=== PATIENT | male | born 1960 | race Caucasian/White ===

== ENCOUNTER → 2024-01-16 07:38 | Outpatient (REF) | payer BC, SELFPAY ==
[2024-01-16 09:55] LABS: TSH 1.66 uIU/ml (0.47-4.68)
[2024-01-16 10:02] LABS: ALT (SGPT) 30 U/L (0-50); AST (SGOT) 35 U/L (17-59); Albumin 3.5 g/dl (3.5-5.0); Alkaline Phosphatase 60 U/L (38-126); Blood Urea Nitrogen 15 mg/dl (9-20); Calcium 8.8 mg/dl (8.4-10.2); Carbon Dioxide 30 mmol/L (22-30); Chloride 104 mmol/L (98-107); Glucose 55 mg/dl (70-99); HDL Cholesterol 61 mg/dl; LDL Cholesterol, Calculated 77 mg/dl; Potassium 4.6 mmol/L (3.5-5.1); Sodium 138 mmol/L (135-145); Total Bilirubin 0.6 mg/dl (0.2-1.3); Total Cholesterol 152 mg/dl (50-199); Total Protein 6.2 g/dl (6.3-8.2); Triglyceride 70 mg/dl (10-149); Very Low Density Lipoprotein 14 mg/dl (0-30); eGFR > 60.00
[2024-01-16 12:11] LABS: Glycohemoglobin (HgbA1c) 7.9 % (4.0-5.6)
== END ==
LOC: REG 07:38
PROVIDERS: ATTENDING PHYSICIAN Nurse Practitioner Family; FAMILY PHYSICIAN Internal Medicine
DX: E11.9 Type 2 diabetes mellitus without complications (principal)
CPT/HCPCS: 36415; 80053; 80061; 83036; 84443

== ENCOUNTER → 2024-05-17 06:43 | Outpatient (REF) | payer BC, SELFPAY ==
[2024-05-17 08:07] LABS: ALT (SGPT) 27 U/L (0-50); AST (SGOT) 26 U/L (17-59); Albumin 3.9 g/dl (3.5-5.0); Alkaline Phosphatase 63 U/L (38-126); Blood Urea Nitrogen 24 mg/dl (9-20); Calcium 8.9 mg/dl (8.4-10.2); Carbon Dioxide 26 mmol/L (22-30); Chloride 102 mmol/L (98-107); Glucose 173 mg/dl (70-99); Potassium 4.7 mmol/L (3.5-5.1); Sodium 138 mmol/L (135-145); Total Bilirubin 0.5 mg/dl (0.2-1.3); Total Protein 6.6 g/dl (6.3-8.2); eGFR > 60.00
[2024-05-17 08:22] LABS: Microalbumin, Random Urine < 0.6 mg/dl (0.6-1.7)
[2024-05-17 09:06] LABS: Glycohemoglobin (HgbA1c) 8.8 % (4.0-5.6)
== END ==
LOC: REG 06:43
PROVIDERS: ATTENDING PHYSICIAN Internal Medicine Endocrinology, Diabetes & Metabolism; FAMILY PHYSICIAN Internal Medicine
DX: E11.9 Type 2 diabetes mellitus without complications (principal)
CPT/HCPCS: 36415; 80053; 82043; 82570; 83036

== ENCOUNTER 2025-08-01 06:19 | Day surgery (SDC) | payer BC, SELFPAY ==
[2025-08-01 09:26] LABS: Glucose - Point of Care 185 mg/dl (70-99)
== END 2025-08-01 11:15 | disposition home or self-care (01) ==
LOC: GI 06:19
PROVIDERS: ATTENDING PHYSICIAN Internal Medicine Gastroenterology; FAMILY PHYSICIAN Internal Medicine
DX: Z12.11 Encounter for screening for malignant neoplasm of colon (principal); K64.8 Other hemorrhoids; K57.30 Diverticulosis of large intestine without perforation or abscess without bleeding; D12.3 Benign neoplasm of transverse colon; D12.2 Benign neoplasm of ascending colon; D12.4 Benign neoplasm of descending colon; D12.5 Benign neoplasm of sigmoid colon; Z86.0100 Personal history of colon polyps, unspecified
CPT/HCPCS: 45385; 45380; 82962; 88305

== ENCOUNTER 2025-08-09 06:41 | Inpatient (IN) | payer BC, SELFPAY ==
[2025-08-09] VITALS (24 sets, daily range): BP systolic 100–153; BP diastolic 57–119; BMI 68.0; BMI 31.1
--- NOTE | 2025-08-09 02:48 | ED.GENMED ---
History of Present Illness
General
Chief Complaint: Cold/Flu/URI Symptoms
Time Seen by Provider: 08/09/25 02:22
History of Present Illness
History of Present Illness:
65-year-old male with history of insulin-dependent diabetes presents to the emergency department for evaluation of fever, chills, body aches, left-sided pleuritic chest pain, dyspnea, and coughing for the past 2 to 3 days. Began vomiting this
evening. Taking [id number] cold and flu medicines with minimal relief. No ill contacts at home. Did receive COVID and flu vaccines
Past History
Past History
ED Past Medical History: IDDM and Other (Diabetes, sinus polyp surgery)
Social History
Tobacco: Non-smoker
Alcohol: None
Drug: None
Personal:
Living: with family
Employment: Employed
Family History
Family History: Other (Parkinson's, diabetes, coronary artery disease)
Review of Systems
Review of Systems
Allergies reviewed?: Yes
All Other Systems: ROS reviewed and negative except as documented in HPI and ROS
Phy Exam
Physical Exam
Physical Exam:
GEN: Well appearing, NAD, WDWN
HEENT: Oral mucosa moist, no scleral icterus
Cardiac: Tachycardic, regular, no murmur
Lung: No respiratory distress, no tachypnea, lungs clear to auscultation bilaterally
MSK: No gross deformity or injuries
Skin: Good color, no pallor or jaundice, no rashes
Neuro: AO x3, moves all extremities freely
Psych: Calm, cooperative
Sepsis
Sepsis Screening
Sepsis Assessment: Sepsis Ruled Out
Sepsis Screen
Sepsis Screen: Sepsis Ruled Out
Date: 08/09/25
Time: 05:16
Course
Orders/Labs/Results
Orders:
Orders
08/09/25 02:03
Electrocardiogram (*1) Urgent
Reason for Study: Chest Pain
08/09/25 02:04
EKG- Treatment ONCE
08/09/25 02:08
COVID-19 Antigen Urgent
Source: Nasal Swab
Influenza A+B Rapid Molecular Urgent
KARI Source: Nasal Swab
Specimen Description:
08/09/25 02:47
Ketorolac [Toradol] 15 mg IV NOW STA
08/09/25 02:48
CR Chest - 2 Views Urgent
Comment:
Reason For Exam: L chest pain/SOB
08/09/25 03:26
Complete Blood Count/With Diff Urgent
Comprehensive Metabolic Panel Urgent
Lactic Acid Q4H
Comment: CANCEL 2nd LACTIC ACID IF 1st LACTIC ACID IS LESS THAN 2
Serum Osmolality Urgent
Comment: ADD ON
Troponin I Urgent
08/09/25 04:29
0.9% Sodium Chloride 1000 ml [Nss] 1,000 ml IV BOLUS
08/09/25 04:31
Lactated Ringers [Lr] 1,000 ml IV BOLUS
08/09/25 04:32
Add On- LAB Urgent
Tests Added?: serum osmolality
08/09/25 04:34
Venous Blood Gas Urgent
%Oxygen/Room Air: 93
08/09/25 04:39
Acetone [B-Hydroxybutyrate] Urgent
08/09/25 05:11
Oseltamivir Phosphate [Tamiflu] 75 mg PO NOW STA
Abnormal Lab Results
08/09/25 08/09/25
03:26 04:34
WBC 18.1 H 10^3/uL
(4.8-10.8)
RDW 14.9 H %
(11.5-14.5)
MPV 11.1 H fL
(7.4-10.4)
Abs Immat Gran (auto) 0.2 H 10^3/uL
(0-0.05)
Absolute Neuts (auto) 15.3 H 10^3/uL
(1.4-6.5)
Absolute Lymphs (auto) 0.9 L 10^3/uL
(1.2-3.4)
Absolute Monos (auto) 1.5 H 10^3/uL
(0.1-0.6)
Immature Gran % 0.8 H %
(0-0.5)
Neutrophils % 84.4 H %
(42.2-75.2)
Lymphocytes % 5.2 L %
(20.5-51.1)
VBG pH 7.23 L
(7.32-7.43)
VBG pCO2 25 L mmHg
(35-48)
VBG pO2 135 H mmHg
(30-50)
VBG HCO3 10.5 L mmol/L
(22-27)
Sodium 131 L mmol/L
(135-145)
Carbon Dioxide 9 L* mmol/L
(22-30)
Glucose 184 H mg/dl
(70-99)
08/09/25 03:26
08/09/25 03:26
Vital Signs
Initial and Last Documented VS:
Initial Vital Signs
Temp Pulse Resp BP Pulse Ox
97.9 F 113 24 113/78 95
08/09/25 01:59 08/09/25 01:59 08/09/25 01:59 08/09/25 01:59 08/09/25 01:59
Last Documented Vital Signs
Temp Pulse Resp BP Pulse Ox
97.9 F 109 24 118/72 92
08/09/25 01:59 08/09/25 02:45 08/09/25 01:59 08/09/25 04:00 08/09/25 03:51
MDM/Problems Addressed
MDM/Problems Addressed:
Etiology to patient's metabolic acidosis is most likely ketosis whether this be starvation versus diabetic ketoacidosis. His glucose is only 184 thus initiated buffered crystalloid only for the time being. lactic normal, Osmolar gap <15. Will
start antivirals, no evidence for infiltrate on chest x-ray. Negative troponin is reassuring against myocarditis explaining his chest pain. Will admit to the hospitalist service for further management
Comment
Comment:
EKG independently interpreted by me shows a sinus tachycardia rate of 110 with a mildly increased QT interval, no ischemic ST changes. Chest x-ray independently interpreted by me is negative for acute infiltrate
*Pulse Oximetry
SaO2: 95
Oxygen Mode of Delivery: Room air
Patient hypoxic: yes
*Critical Care Note
Total Time (30-74mins, 75-104mins- exclusive of procedures): 45 minutes
comment:
Critical care time: 45 minutes
Critical care time was exclusive of: Separately billable procedures, treating other patients, and teaching time
Critical care was necessary to treat or prevent imminent or life-threatening deterioration of the following conditions: Metabolic acidosis due to influenza
Critical care time spent personally by me on the following activities:
[x] Review of old charts
[x] Obtaining history from patient or surrogate
[x] Ordering and review of the laboratory studies
[x] Ordering and review of radiographic studies
[x] Ordering and performing treatments and interventions
[x] Patient patient's response to treatment
[x] Development of treatment plan with patient or surrogate
ED Attending Note
-
Portions of this chart may have been created with voice recognition software.� Occasional wrong word or��sound alike� substitutions may have occurred due to the inherent limitations of voice recognition software.
Discharge Plan
Departure
Patient Disposition: Admit
Date of Disposition: 08/09/25
Time of Disposition: 05:13
Admit to: Med/Surg
Presentation/result/management discussed w/ accepting MD/DO: Hospitalist
Discharge Problem:
Influenza A, Metabolic acidosis
Prescriptions:
No Action
atorvastatin 10 mg Tablet
10 mg PO DAILY
metformin 1,000 mg Tablet
1,000 mg PO BID@0800,1700
Rx Instructions:
STOPPED UNTIL DIARRHEA IS OVER
fluticasone propionate [Flonase Allergy Relief] 50 mcg/actuation [place],Suspension
2 spray INTRANASAL DAILY
escitalopram oxalate [Lexapro] 20 mg Tablet
20 mg PO DAILY
Jardiance 25 mg Tablet
25 mg PO DAILY
Trulicity 3 mg/0.5 mL pen injector
3 mg SC WE
levothyroxine 75 mcg tablet
75 mcg PO DAILY@0700
loperamide 2 mg Capsule
2 mg PO Q6HPRN PRN (Reason: diarrhea) Qty: 30 0RF
insulin glargine [Lantus Solostar U-100 Insulin] 100 unit/mL (3 mL) insulin pen
25 unit SC BID 30 Days Qty: 15 1RF
pantoprazole 40 mg Tablet,Delayed Release (Dr/Ec)
40 mg PO DAILY Qty: 30 0RF
diphenoxylate-atropine 2.5-0.025 mg tablet
1 tab PO QID PRN (Reason: diarrhea)
benzonatate 100 mg capsule
100 mg PO TID PRN (Reason: cough)
midodrine 5 mg Tablet
5 mg PO TID@0800,1300,1800 Qty: 90 0RF
insulin aspart U-100 [Novolog FlexPen U-100 Insulin] 100 unit/mL (3 mL) Insulin Pen
8 unit SC AC Qty: 15 0RF
furosemide [Lasix] 40 mg tablet
40 mg PO DAILY Qty: 30 0RF
potassium chloride 20 mEq tablet,ER particles/crystals
20 meq PO DAILY Qty: 30 0RF
Referrals:
Mahsa James MD [Family Provider, Internal Medicine]
Interventions
Interventions:
*General Assessment Last Done: 08/09/25 03:22
*Neglect/Abuse Screening Last Done: 08/09/25 01:59
*ED COVID-19 Vaccine History Last Done: 08/09/25 01:59
*ED Influenza Vaccine History Last Done: 08/09/25 01:59
[facility] Fall Risk Assessment Tool Last Done: 08/09/25 03:22
*Risk Screen - Suicide (C-SSRS) Last Done: 08/09/25 04:04
ED- Pulmonary Assessment Last Done: 08/09/25 03:22
Discharge Date and Time
Print Language: IRAQI
[2025-08-09 02:54] LABS: COVID-19 Antigen Negative (Negative)
[2025-08-09] MEDS: TORADOL 15 MG IV ×3 (03:27→19:22)
[2025-08-09 03:50] LABS: Hematocrit 42.8 % (39.0-52.0); Hemoglobin 14.3 g/dL (13.0-18.0); Mean Corp Hgb Conc. 33.4 g/dL (33.0-37.0); Mean Corpuscular Volume 85.3 fL (80.0-94.0); Nucleated Red Blood Cells % 0 % (-); Platelet Count 194 10^3/uL (130-400); Red Cell Dist. Width 14.9 % (11.5-14.5)
[2025-08-09 04:27] LABS: ALT (SGPT) 19 U/L (0-50); AST (SGOT) 27 U/L (17-59); Albumin 4.1 g/dl (3.5-5.0); Alkaline Phosphatase 91 U/L (38-126); Blood Urea Nitrogen 16 mg/dl (9-20); Calcium 8.7 mg/dl (8.4-10.2); Carbon Dioxide 9 mmol/L (22-30); Chloride 98 mmol/L (98-107); Estimated Creatinine Clearance 89 ml/min; Glucose 184 mg/dl (70-99); Potassium 5.0 mmol/L (3.5-5.1); Sodium 131 mmol/L (135-145); Total Protein 7.2 g/dl (6.3-8.2); eGFR > 60.00
[2025-08-09 04:29] LABS: Troponin I < 0.012 ng/ml
[2025-08-09] MEDS: LR 1000 IV (04:33)
[2025-08-09 04:45] LABS: Venous Blood Gas B.E. -15.2 mmol/L (-4 to +4); Venous Blood Gas O2 Sat % 99.3 %
[2025-08-09] MEDS: TAMIFLU 75 MG PO ×2 (05:25→19:19)
--- NOTE | 2025-08-09 06:16 | HPS.HSE ---
Family Physician
-
Family Physician: Mahsa James
Chief Complaint
-
Flulike illness
History of Present Illness
This is a 65-year-old male with past medical history significant for insulin-dependent diabetes, hypothyroidism, hypertension and hyperlipidemia who presents to the emergency department with complaints of generalized aches and malaise that started
about 2 days ago.
Exam patient reports abrupt onset of fever chills and generalized aches and pains. Initially he had decreased appetite but later on developed nausea and vomiting and unable to tolerate p.o. He reports that he has continued take his usual
medications and his glucoses ran in the 180s. He denies any diarrhea. He does have sick contacts. He denies any shortness of breath.
On arrival in the emergency department he was afebrile, blood pressure was 113/67 with a pulse of 109 and oxygen saturation of 98%. Chest x-ray shows no acute infiltrate. He does have a white count of 18.1, hemoglobin 14.3 and platelet 194.
Sodium was 131 potassium 5.1, bicarb of 9 with a BUN and creatinine of 11 and 1.0 and a glucose of 184. Anion gap was 24. pH is 7.23 with a pCO2 of 25. 1 beta-hydroxybutyrate was elevated at 4.8. Urine studies are pending. Influenza test was
positive. COVID test was negative.
Medical History
Past Medical History
Past Medical History: Reports Other
Additional Past Medical History:
DM-II
Hypertension
Hyperlipidemia
Long COVID
Hypothyroidism
Chronic Sinus Disease
Past Surgical History: Reports Other
Additional Past Surgical History:
Sinus Surgery
Rotator Cuff Surgery
Social History
Tobacco: Non-smoker
Alcohol: None
Drug: None
Family History
Family History: Other (Father: CAD, Parkinson's Disease Mother: Colon Cancer, Longevity)
Allergies / Home Medications
Allergies reflects when Allergies were last updated in [employer].
Home Medications with original date entered in [employer]
Allergy/Medication List:
Allergies
Allergy/AdvReac Type Severity Reaction Status Date / Time
No Known Allergies Allergy Verified 07/06/23 20:50
Home Medications
atorvastatin 10 mg tablet 10 mg PO DAILY High Cholesterol 07/29/22
empagliflozin 25 mg tablet (Jardiance) 25 mg PO DAILY Diabetes 07/29/22
escitalopram oxalate 20 mg tablet (Lexapro) 20 mg PO DAILY Mental Health/Anxiety 07/29/22
fluticasone propionate 50 mcg/actuation nasal spray,suspension (Flonase Allergy Relief) 2 spray intranasal DAILY Allergies 07/29/22
metformin 1,000 mg tablet 1,000 mg PO BID@0800,1700 Diabetes 07/29/22
ramipril 5 mg capsule 5 mg PO DAILY Diabetes 07/29/22
dulaglutide 3 mg/0.5 mL subcutaneous pen injector (Trulicity) 3 mg SC WE Diabetes 06/23/23
levothyroxine 75 mcg tablet 75 mcg PO DAILY@0700 Thyroid 06/23/23
insulin aspart U-100 100 unit/mL (3 mL) subcutaneous pen (Novolog FlexPen U-100 Insulin aspart) 6 unit (0.06 mL) SC AC IDDM #15 mL 06/29/23
insulin glargine 100 unit/mL (3 mL) subcutaneous pen (Lantus Solostar U-100 Insulin) 25 unit (0.25 mL) SC BID IDDM 30 days #15 mL 06/29/23
loperamide 2 mg capsule 2 mg PO Q6HPRN PRN diarrhea #30 caps 06/29/23
pantoprazole 40 mg tablet,delayed release 40 mg PO DAILY Gastrointestinal issue #30 tabs 06/29/23
benzonatate 100 mg capsule 100 mg PO TID PRN cough 07/06/23
diphenoxylate-atropine 2.5 mg-0.025 mg tablet 1 tab PO QID PRN diarrhea 07/06/23
Review of Systems
-
Constitutional: Reports Fever and Chills
EENT: Reports No Symptoms
Respiratory: Reports Cough; Denies Trouble Breathing
Cardiac: Reports No Symptoms
Abdomen/GI: Reports Nausea and Vomiting
: Reports No Symptoms
Musculoskeletal: Reports No Symptoms
Skin: Reports No Symptoms
Neurological: Reports Weakness
Endocrine: Reports No Symptoms
Hematologic/Lymphatic: Reports No Symptoms
Psych: Reports No Symptoms
Physical Exam
Vital Signs
Vital Signs
Temp Pulse Resp BP Pulse Ox
97.9 F 109 24 115/68 94
08/09/25 01:59 08/09/25 02:45 08/09/25 01:59 08/09/25 06:00 08/09/25 06:00
Physical Exam
General: Comfortable and Conversant
HEENT: NormoCephalic and Anicteric
Respiratory: Clear and Non Labored Respirations
Cardiac: S1/S2 and Regular Rhythm
GI: Soft, Non Tender and Non Distended
Musculoskeletal: No Clubbing, No Cyanosis and Other (+2 pitting edema bilateral lower extremities)
Skin: Warm and Dry
Neuro: Awake, Alert, Oriented and Nonfocal/grossly intact
Psych: Calm
Laboratory Results
-
08/09/25 03:26
08/09/25 03:26
Laboratory Results
Lactic Acid Cancelled 08/09/25 07:00
Total Bilirubin 0.5 mg/dl (0.2-1.3) 08/09/25 03:26
AST 27 U/L (17-59) 08/09/25 03:26
ALT 19 U/L (0-50) 08/09/25 03:26
Alkaline Phosphatase 91 U/L (38-126) 08/09/25 03:26
Troponin I < 0.012 ng/ml 08/09/25 03:26
Data Reviewed
-
Diagnostic Radiology: Image Personally Visualized and interpreted
Lab Data: Labs Reviewed by me
Old Records: Reviewed
Impression/Plan
-
IMPRESSION:
65year-old with past medical history significant for insulin-dependent diabetes who presents to the emergency department with flulike symptoms. Diagnosed with influenza. Patient has had approximately 2 days of symptoms. He is now having nausea
and vomiting and is dehydrated. Clinical picture shows acidemia, no lactic acidosis, anion gap of 24 with a glucose of 184. Patient likely has known hypoglycemic DKA in the setting of SGLT2 inhibitor use.
PLAN:
Influenza A infection -cannot rule out superimposed pneumonia at this time but chest x-ray shows no acute infiltrates on my read.
� Admit to ICU
� Patient will need insulin drip
� Start Tamiflu 75 mg twice daily
� Supportive measures with IV fluids pain control antipyretics and antiemetics
� Check procalcitonin, if positive will start ceftriaxone
� Check MRSA swab
DKA�unknown hyper/glycemic DKA given acidemia, bicarb of 9 with anion gap of 24 and elevated beta-hydroxybutyrate. Urinary ketones and urinary glucose will confirm the diagnosis. Unlikely starvation ketoacidosis.
� Status post 1 L bolus of LR
� Continue IV fluids with D5 normal saline plus KCl at 150 mL an hour
� Start insulin drip
� Insulin drip protocol with every 4 hours chemistry and every hour fingersticks
Hypothyroid
� Continue levothyroxine 75 mcg
DVT prophylaxis�Lovenox subcu
CODE STATUS�full code
[2025-08-09] MEDS: D5/0.45%NSS with KCL 20 MEQ 1000 IV ×3 (07:48→17:26)
[2025-08-09] MEDS: NOVOLIN R INSULIN INFUSION 100 IV (07:52)
--- NOTE | 2025-08-09 07:52 | EDRN ---
Blood glucose 180 on pt's glucometer
[2025-08-09] MEDS: TYLENOL 650 MG PO ×2 (07:57→19:18)
--- NOTE | 2025-08-09 08:46 | PTCARENOTE ---
arrived via ED stretcher, ambulated to bathroom, voided 500 clear yellow, settled in bed. See admission assessment. Fluids and insulin gtt infuse as ordered. IV sites patent. notes continuing L rib pleuritic pain, recent tylenol. droplet
isolation
[2025-08-09 09:15] LABS: Glucose - Point of Care 189 mg/dl (70-99)
--- NOTE | 2025-08-09 09:29 | CON.INTV ---
Addendum entered and electronically signed by Rigo Tang MD 08/09/25 14:03:
D-dimer elevated.
Unclear significant at this point
Wait for lower extremity Dopplers
Again, if chest pain continues CT chest will be necessary.
Original Note:
Consultation
Consultation Request
Date/Time Consultation Requested: 08/09/2025
Date/Time Consultation Performed: 08/09/2025
Requesting Provider: Dr. Hernandez
Performing Provider: Dr. Tang
Reason for Consultation: DKA
Medical History
-
Chief Complaint: DKA/influenza A
History of Present Illness:
Mr. Duran is a 65-year-old male with a history of insulin-dependent diabetes, hypothyroid, hypertension, hyperlipidemia, anxiety, GERD, long COVID who presented with generalized aches and malaise for 2-3 days. He reports having fevers and chills as
well as cough and pleuritic chest pain with decreasing appetite increasing nausea and episode of vomiting. He also noticed that his glucose levels were running in the 180s. He takes Jardiance and insulin at home. He took [id number] cold and
flu medicines that did not provide any relief. He reports no known sick contacts. In the ED he was afebrile initial vital signs showed BP 113/67, pulse 109, O2 sat 98. Labs notable for WBC 18.1 Hgb 14.3 sodium 131 potassium 5.1 bicarb 9 CR 1.0
glucose 184 and beta hydroxybutyrate at 4.8 VBG showed pH 7.2 11/08/135/10. Influenza test was positive COVID test negative. In the ED he received 2 L IV fluids, Tamiflu, chest x-ray in the ED showed no cardiopulmonary process, EKG showed sinus
tachycardia. Patient was brought to ICU and started on D5 normal saline, and insulin infusion 2 units/h. This morning he reported L chest wall pain associated with SOB radiating to L shoulder worsened by breathing. He reports that this has been
going on for 3 days. He also had an episode of emesis and nausea, no LE swelling, no abdominal pain. Pain improved with toradol in the ED.
Past Medical History
Past Medical History: GERD, HTN, Hypercholesterolemia, Hypothyroidism, IDDM and Other (Long COVID)
Past Surgical History: Orthopedic (Rotator cuff surgery) and Other (Sinus)
Social History
Tobacco: Non-smoker
Alcohol: None
Drug: None
Personal:
Living: With Family
Employment: Employed
Family History
Family History: Reviewed & Not Pertinent
Allergies / Home Medications
Allergies
Allergy/AdvReac Type Severity Reaction Status Date / Time
No Known Allergies Allergy Verified 08/09/25 01:59
Home Medications
�Medication �Instructions �Recorded �Confirmed �Last Taken �Type
atorvastatin 10 mg tablet 10 mg PO DAILY High Cholesterol 07/29/22 08/09/25 08/08/25 History
empagliflozin 25 mg tablet 25 mg PO DAILY Diabetes 07/29/22 08/09/25 08/08/25 History
(Jardiance)
escitalopram oxalate 20 mg tablet 20 mg PO DAILY Mental 07/29/22 08/09/25 08/08/25 History
(Lexapro) Health/Anxiety
levothyroxine 75 mcg tablet 75 mcg PO DAILY@0700 Thyroid 06/23/23 08/09/25 08/08/25 History
insulin glargine 100 unit/mL (3 20 unit SC BID IDDM 08/09/25 08/09/25 08/08/25 History
mL) subcutaneous pen (Lantus
Solostar U-100 Insulin)
ramipril 5 mg capsule 5 mg PO DAILY 08/09/25 08/09/25 08/08/25 History
tirzepatide 10 mg/0.5 mL 10 mg SC WE 08/09/25 08/09/25 08/07/25 History
subcutaneous pen injector
(Mounshawnro)
Review of Systems
-
History Source: Patient
All other systems: Negative unless noted
Constitutional: Fever and Chills
Respiratory: Trouble Breathing (due to pain)
Cardiac: Chest Pain (with breathing)
Vitals / Labs / Diagnostic Testing
Vital Signs
Temp Pulse Resp BP Pulse Ox
97.7 F 101 20 140/79 94
08/09/25 07:16 08/09/25 08:36 08/09/25 08:36 08/09/25 08:36 08/09/25 08:48
Lab Data
08/09/25 03:26
Microbiology
08/09/25 02:08 Nasal Swab Influenza Types A & B (SWAPNA) - Final
Influenza A Positive, NAAT
Diagnostic Testing:
Physical Exam
-
HEENT: Normocephalic and Anicteric
Cardiovascular: S1/S2 and Regular Rhythm
Respiratory: Clear and Non-Labored Respirations
GI: Soft, Non Distended and Non Tender
Neurology: Awake and Alert
Skin: Warm and Dry
General: Pain
Assessment
-
Mr. Duran is a 65-year-old male with a history of insulin-dependent diabetes, hypothyroid, hypertension, hyperlipidemia, anxiety, GERD, long COVID who presented with generalized aches and malaise for 2-3 days. He reports having fevers and chills as
well as cough and pleuritic chest pain with decreasing appetite increasing nausea and episode of vomiting. Labs suggestive of euglycemic DKA and influenza A.
#Endocrine
Euglycemic DKA
Type 2 diabetes on insulin
home insulin Lantus 25 NovoLog 6
On Jardiance
On Mounjaro
Beta hydroxybutyrate 4.8
Anion gap 24
Bicarb 9
S/p LR in the ED
- npo
- Insulin drip 2 units/h
- D5/0.45 NSS with potassium
- Q4 chemistries until gap closed x2
Hypothyroidism
Continue levothyroxine
#Neurologic
Pain: Chest pain with inspiration
Analgesia: oxycidine prn, tylenol, lido patch, toradol prn
Mentation: At baseline AO x 3
Activity:
#Cardiovascular
Maintain MAP> 65
Pressors: none
QTc: 484
EKG 08/09 sinus tachycardia possible left atrial enlargement
#Respiratory
O2 requirements:
Sedation:
Home O2: None
Blood gas: 08/09 VBG 7.23/25/135/10.5
Pleurisy
L chest wall pain radiating to L shoulder
EKG with sinus tachy
troponin negative, awaiting repeat
CXR with no obvious cardiopulm process
if pain persistent, additional imaging
-D dimer, helpful if negative
-US LE rule out DVT
-Toradol prn
-Lido patch
-oxycodone prn
#Gastrointestinal
Diet: N.p.o.
Stooling regimen:
Tubes: None
Antiemetics: Zofran
GI PPx: Protonix 40 mg daily
#Renal
Doan: None
Urine output:
IVF: D5.45 NSS with KCl at 200
Electrolytes: K>4 Mg>2
Na 131
K 5.0
Mag 2.3
#Infectious
WBC 18
ABX:
Microbiology: Influenza A positive
Antipyretics: acetaminophen
Influenza A
Started 2-3 days ago
S/p dose of Tamiflu in ER
chest x-ray with no acute cardiopulmonary process
-Tamiflu twice daily
- ABX pending Pro-Kade
-Continue supportive care
#Hematologic
DVT PPx: Lovenox
Hemoglobin: 14.3
PT
INR
PTT
#Surgical
#Access
Central:
None
Peripheral:
Right cephalic 20-gauge
Right hand 20-gauge
CODE STATUS: Full code
[2025-08-09] MEDS: ZOFRAN 4 MG IV (09:38)
--- NOTE | 2025-08-09 09:41 | PTCARENOTE ---
vomited, med with zofran IV per order.
[2025-08-09] MEDS: LIPITOR PO (10:06)
[2025-08-09] MEDS: PROTONIX 40 MG PO (10:10)
[2025-08-09] MEDS: SYNTHROID 75 MCG PO (10:10)
[2025-08-09] MEDS: LEXAPRO 20 MG PO (10:10)
[2025-08-09 10:19] LABS: Glucose - Point of Care 254 mg/dl (70-99)
[2025-08-09 11:21] LABS: Glucose - Point of Care 206 mg/dl (70-99)
--- NOTE | 2025-08-09 11:22 | W.PN.HOSP.TC ---
Today's Communication/Plan
-
IV insulin and fluids
Serial BMP.
Assessment / Plan
Assessment / Plan
Impression:
65year-old with past medical history significant for insulin-dependent diabetes who presents to the emergency department with flulike symptoms. Diagnosed with influenza. Patient has had approximately 2 days of symptoms. He is now having nausea
and vomiting and is dehydrated. Clinical picture shows acidemia, no lactic acidosis, anion gap of 24 with a glucose of 184. Patient likely has known hypoglycemic DKA in the setting of SGLT2 inhibitor use.
Influenza bronchitis
Euglycemic DKA in the settings of SGLT2 inhibitor
Atypical chest pain
Other conditions
IDDM type II
Dyslipidemia
Hypertension
Hypothyroidism
Obesity with BMI of 31
Plan
Influenza A. Report symptoms for 2 days prior to presentation.
Stable respiratory status
Chest x-ray with no focal infiltrates.
No clinical evidence for bacterial superinfection
Procalcitonin pending
Initiated on Tamiflu.
Mucolytic's
Euglycemic DKA in the settings of SGLT2 inhibitor.
Preadmission regimen including Lantus 20 units twice daily, Mounjaro and Jardiance
Prior history of the same triggered with URI/COVID.
Update hemoglobin A1c pending
IV insulin
Aggressive IV hydration
Hold Jardiance
Serial BMP
Currently n.p.o.
Reproducible midsternal pain likely related to flu and DKA.
EKG with no evidence of ischemia
Troponin negative. Continue monitoring.
Continue PPI
And oxycodone for better control
DVT prophylaxis: Lovenox
Anticipated Discharge: 24 - 48 hours
Subjective/Interval History
-
Date of Service: August 09, 2025
Objective Data
-
Labs:
Laboratory Results
08/09/25 08/09/25 08/09/25
03:26 12:00 16:00
WBC 18.1 H
Hgb 14.3
Hct 42.8
Plt Count 194
Sodium 131 L Pending Pending
Potassium 5.0 Pending Pending
Chloride 98 Pending Pending
Carbon Dioxide 9 L* Pending Pending
BUN 16 Pending Pending
Creatinine 1.0 Pending Pending
Glucose 184 H Pending Pending
Calcium 8.7 Pending Pending
Total Bilirubin 0.5
AST 27
ALT 19
Alkaline Phosphatase 91
08/09/25
20:00
WBC
Hgb
Hct
Plt Count
Sodium Pending
Potassium Pending
Chloride Pending
Carbon Dioxide Pending
BUN Pending
Creatinine Pending
Glucose Pending
Calcium Pending
Total Bilirubin
AST
ALT
Alkaline Phosphatase
Vital Signs:
Vital Signs
Temp Pulse Resp BP Pulse Ox
97.3 F 101 25 129/77 94
08/09/25 09:00 08/09/25 11:00 08/09/25 11:00 08/09/25 11:00 08/09/25 11:00
I&O
08/08/25 08/09/25 08/10/25
06:59 06:59 06:59
Intake Total 841 / 841
Output Total 500 / 500
Balance 341 / 341
Physical Exam
-
General: Well Developed and No Apparent Distress
HEENT: Normocephalic, Atraumatic and Moist Mucous Membranes
Respiratory: Clear to Auscultation
Cardiac: Regular Rhythm and S1/S2; Negative Murmur, Rub or Gallop
GI: Soft, Nontender, Nondistended and Normal Bowel Sounds; Negative Organomegaly
Rectal: Deferred by Provider
Musculoskeletal: No Clubbing, No Cyanosis and No Edema
Skin: Negative Rash
Neuro: Nonfocal/Grossly Intact
[2025-08-09] MEDS: ROXICODONE 5 MG PO ×2 (11:36→17:26)
--- NOTE | 2025-08-09 11:55 | CM ---
I.A: By PANDA Clark.
Patient lives with his in a [address] with 0 STI, and 12 STI, plus a Powder Room on the 1st Floor. DME: No DME.
PCP: Dr. Mahsa James
Pharm: [facility], otherwise [facility]
Patient has transport home. PLAN: Anticipate Home No Needs, but watching for needs.
[2025-08-09 12:07] LABS: Glucose - Point of Care 232 mg/dl (70-99)
[2025-08-09 12:46] LABS: Blood Urea Nitrogen 18 mg/dl (9-20); Calcium 9.0 mg/dl (8.4-10.2); Carbon Dioxide 13 mmol/L (22-30); Chloride 98 mmol/L (98-107); Estimated Creatinine Clearance 99 ml/min; Glucose 265 mg/dl (70-99); Magnesium 2.3 mg/dl (1.6-2.3); Potassium 5.0 mmol/L (3.5-5.1); Sodium 131 mmol/L (135-145); eGFR > 60.00
[2025-08-09 12:52] LABS: Procalcitonin 3.88 ng/ml (0.0-0.25)
[2025-08-09 12:53] LABS: Troponin I < 0.012 ng/ml
[2025-08-09] MEDS: LIDOCAINE 4% PATCH 1 PATCH TOPICAL (13:17)
[2025-08-09 13:20] LABS: Glucose - Point of Care 223 mg/dl (70-99)
[2025-08-09 13:28] LABS: Glycohemoglobin (HgbA1c) 8.7 % (4.0-5.9)
[2025-08-09 13:31] LABS: D-Dimer 1.19 ug/mlFEU (0.00-0.50)
--- NOTE | 2025-08-09 13:52 | PTCARENOTE ---
family visiting. lido patch applied, toradol, see MAR for time of administration. presently visiting, talking on phone, VS noted. Insulin and fluids continue.
[2025-08-09 14:24] LABS: Glucose - Point of Care 219 mg/dl (70-99)
[2025-08-09 15:11] LABS: Glucose - Point of Care 209 mg/dl (70-99)
[2025-08-09 16:11] LABS: Glucose - Point of Care 202 mg/dl (70-99)
[2025-08-09 16:32] LABS: Blood Urea Nitrogen 18 mg/dl (9-20); Calcium 8.2 mg/dl (8.4-10.2); Carbon Dioxide 13 mmol/L (22-30); Chloride 99 mmol/L (98-107); Estimated Creatinine Clearance 99 ml/min; Glucose 201 mg/dl (70-99); Potassium 5.3 mmol/L (3.5-5.1); Sodium 128 mmol/L (135-145); eGFR > 60.00
[2025-08-09 17:09] LABS: Glucose - Point of Care 184 mg/dl (70-99)
[2025-08-09] MEDS: LOVENOX 40 MG SC (17:23)
[2025-08-09 18:18] LABS: Glucose - Point of Care 189 mg/dl (70-99)
--- NOTE | 2025-08-09 18:21 | PTCARENOTE ---
pt assisted to stand to void, RN 2 steps away from pt, he bobbled against the footboard, steadied, required a bit of holding while standing. no bruising, notes no pain, injury, deficit, pt reports didn't hit the bed but observed to have done so.
voided. back to chair. chair alarm placed. call garcia in reach, use reinforced.
[2025-08-09 19:19] LABS: Glucose - Point of Care 201 mg/dl (70-99)
[2025-08-09 20:07] LABS: Glucose - Point of Care 204 mg/dl (70-99)
[2025-08-09 20:44] LABS: INR 1.34; PT 16.3 Sec (11.4-14.6)
[2025-08-09 20:45] LABS: APTT 45.9 Sec (23.4-35.0)
[2025-08-09 20:56] LABS: Troponin I < 0.012 ng/ml
[2025-08-09 21:01] LABS: Blood Urea Nitrogen 19 mg/dl (9-20); Calcium 8.5 mg/dl (8.4-10.2); Carbon Dioxide 12 mmol/L (22-30); Chloride 101 mmol/L (98-107); Estimated Creatinine Clearance 99 ml/min; Glucose 206 mg/dl (70-99); Potassium 4.9 mmol/L (3.5-5.1); Sodium 127 mmol/L (135-145); eGFR > 60.00
[2025-08-09 21:08] LABS: Glucose - Point of Care 222 mg/dl (70-99)
[2025-08-09 22:09] LABS: Glucose - Point of Care 190 mg/dl (70-99)
[2025-08-09 23:22] LABS: Glucose - Point of Care 177 mg/dl (70-99)
[2025-08-09] MEDS: SODIUM BICARBONATE 1160 MEQ IV ×2 (23:37)
[2025-08-09] MEDS: D5/0.45%NSS with KCL 20 MEQ IV (23:56)
[2025-08-10] VITALS (32 sets, daily range): BP systolic 104–149; BP diastolic 41–99; BMI 31.4
[2025-08-10 00:08] LABS: Glucose - Point of Care 172 mg/dl (70-99)
[2025-08-10 00:37] LABS: Blood Urea Nitrogen 19 mg/dl (9-20); Calcium 8.3 mg/dl (8.4-10.2); Carbon Dioxide 21 mmol/L (22-30); Chloride 99 mmol/L (98-107); Estimated Creatinine Clearance 99 ml/min; Glucose 171 mg/dl (70-99); Potassium 5.3 mmol/L (3.5-5.1); Sodium 128 mmol/L (135-145); eGFR > 60.00
[2025-08-10] MEDS: ROXICODONE 5 MG PO (00:41)
--- NOTE | 2025-08-10 00:59 | PTCARENOTE ---
Pt received start of shift, HR ST on telemetry. Pt oriented, but impulsive. Extremely diaphoretic. linen and gown change + washed. 2 IVs removed by pt moving around in bed without regard for lines. 2 new lines placed. IVF and insulin gtt as ordered.
PRN pain management for pain in ribs - see MAR. Pt states the type and intensity of pain has not shifted, still occurs with inspiration and expiration. 6L NC POX 95%. Ambulated x2 assist to bathroom, voiding + passing gas but no BM. Labs as ordered.
[2025-08-10 01:16] LABS: Glucose - Point of Care 163 mg/dl (70-99)
[2025-08-10 02:17] LABS: Glucose - Point of Care 160 mg/dl (70-99)
[2025-08-10] MEDS: TORADOL 15 MG IV ×2 (02:56→13:43)
[2025-08-10 03:07] LABS: Glucose - Point of Care 164 mg/dl (70-99)
[2025-08-10 03:08] LABS: Blood Urea Nitrogen 19 mg/dl (9-20); Calcium 8.6 mg/dl (8.4-10.2); Carbon Dioxide 21 mmol/L (22-30); Chloride 99 mmol/L (98-107); Estimated Creatinine Clearance 89 ml/min; Glucose 159 mg/dl (70-99); Potassium 5.9 mmol/L (3.5-5.1); Sodium 130 mmol/L (135-145); eGFR > 60.00
[2025-08-10 03:11] LABS: Hematocrit 42.1 % (39.0-52.0); Hemoglobin 14.2 g/dL (13.0-18.0); Mean Corp Hgb Conc. 33.7 g/dL (33.0-37.0); Mean Corpuscular Volume 84.2 fL (80.0-94.0); Platelet Count 199 10^3/uL (130-400); Red Cell Dist. Width 15.1 % (11.5-14.5)
[2025-08-10] MEDS: D5/0.45%NACL 1000 IV ×2 (03:34→10:10)
--- NOTE | 2025-08-10 03:41 | PTCARENOTE ---
Continuing prn pain management - see MAR. labs drawn and sent - IVF switched (see MAR). Pt repositioning self in bed. No longer diaphoretic.
[2025-08-10 04:23] LABS: Glucose - Point of Care 159 mg/dl (70-99)
[2025-08-10 05:13] LABS: Glucose - Point of Care 163 mg/dl (70-99)
[2025-08-10 06:11] LABS: Glucose - Point of Care 161 mg/dl (70-99)
[2025-08-10] MEDS: SYNTHROID 75 MCG PO (06:35)
--- NOTE | 2025-08-10 07:00 | PTCARENOTE ---
Received patient A&Ox3, ST, BP WNL, NC 4L, c/o left pleuritic pain with breathing, NPO, continent. Continue Insulin drip per protocol.
[2025-08-10 07:15] LABS: Blood Urea Nitrogen 18 mg/dl (9-20); Calcium 8.3 mg/dl (8.4-10.2); Carbon Dioxide 21 mmol/L (22-30); Chloride 100 mmol/L (98-107); Estimated Creatinine Clearance 100 ml/min; Glucose 169 mg/dl (70-99); Potassium 5.0 mmol/L (3.5-5.1); Sodium 129 mmol/L (135-145); eGFR > 60.00
[2025-08-10] MEDS: DILAUDID 1 MG IV (08:10)
[2025-08-10] MEDS: TYLENOL 1000 MG PO ×3 (08:11→22:05)
[2025-08-10] MEDS: LIPITOR 10 MG PO (08:12)
[2025-08-10] MEDS: LIDOCAINE 4% PATCH 1 PATCH TOPICAL (08:12)
[2025-08-10] MEDS: LEXAPRO 20 MG PO (08:12)
[2025-08-10] MEDS: TAMIFLU 75 MG PO ×2 (08:12→20:06)
[2025-08-10 08:14] LABS: Nucleated Red Blood Cells % 0 % (-)
[2025-08-10 08:15] LABS: Absolute Neutrophils -Man Diff 23.4 10^3/uL (1.4-6.5)
[2025-08-10 08:16] LABS: Normal RBC Morphology Yes; Platelets Checked Yes; Total Cells Counted 100
[2025-08-10 08:32] LABS: Glucose - Point of Care 158 mg/dl (70-99)
[2025-08-10 08:32] LABS: Glucose - Point of Care 175 mg/dl (70-99)
--- NOTE | 2025-08-10 08:57 | W.PN.INTV ---
Today's Communication / Plan
Recommendations
CT angiogram of the chest
Follow leukocytosis
Continue Tamiflu
Analgesia
Discontinue insulin drip
Transition to subcu Lantus
Advance diet
Will consider transfer to telemetry later today.
Assessment
-
Mr. Duran is a 65-year-old male with a history of insulin-dependent diabetes, hypothyroid, hypertension, hyperlipidemia, anxiety, GERD, long COVID who presented with generalized aches and malaise for 2-3 days. He reports having fevers and chills as
well as cough and pleuritic chest pain with decreasing appetite increasing nausea and episode of vomiting. Labs suggestive of euglycemic DKA and influenza A.
-
Euglycemic DKA--likely in the setting of influenza A/Mounjaro and Jardiance.
History of type 2 diabetes on insulin
home insulin Lantus 20 units subcu twice a day
Anion gap is closed.
Electrolytes are balanced
Denies nausea or vomiting
Normal renal function
Will transition back to Lantus start at 15 units twice a day
Insulin sliding scale
Diabetic diet--patient is having poor appetite
Diabetes nurse practitioner evaluation at some point
Hold Mounjaro and Jardiance for now
Discontinue IV fluids
Influenza A: Complete 5 days of Tamiflu
Chest x-ray without infiltrate.
Procalcitonin is elevated but patient is afebrile. Still with leukocyte.
Not hypoxemic
Isolation per protocol.
Depending on CAT scan findings can decide on antibiotics.
-
Left-sided pleuritic type chest pain. Unclear etiology--evolving pneumonia, cannot rule out thromboembolic disease versus viral pleurisy.
Possibly related to infection
Slightly tachycardic this morning
Has been requiring significant amount of analgesia including narcotics
Lower extremity Dopplers negative
Initial D-dimer was elevated but unclear whether there is thromboembolic disease.
Given persistent pain, tachycardia recommend obtaining a CT angiogram of the chest today.
-
Overall his pain is improved but still persistent.
Analgesia: oxycidine prn, tylenol, lido patch, toradol prn
Mentation: At baseline AO x 3
Will advance diet as above
-
Antiemetics: Zofran
GI PPx: Protonix 40 mg daily
DVT PPx: Lovenox
Peripheral:
Right cephalic 20-gauge
Right hand 20-gauge
CODE STATUS: Full code
Critical care statement: A total of 32 minutes of critical care time was provided for this patient today. This includes management of unstable vital signs, evaluation of the patient at bedside, reviewing the patient's pertinent medical records
including ventilator settings, arterial blood gases, radiographs, microbiology, laboratory evaluations and discussion with primary team, critical care nursing, and respiratory therapy.
Subjective Dataa
Subjective Data
Date of Service:
Date of Service: August 10, 2025
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
Subjective:
Still complaining of pleuritic chest pain.
Denies shortness of breath
Afebrile
Denies nausea vomiting
Poor appetite
Review of Systems
General: Fever (n)
Cardiopulmonary: Dyspnea (none at rest) and Chest Pain
GI: Abdominal Pain (n), Nausea (n) and Vomiting (n)
Objective Data
Data Reviewed
Vital Signs / I&O / Oxygen:
Vital Signs
Temp Pulse Resp BP Pulse Ox
97.9 F 96 26 127/76 95
08/10/25 07:16 08/10/25 06:00 08/10/25 06:00 08/10/25 06:00 08/10/25 06:00
Intake and Output
08/09/25 08/10/25 08/11/25
06:59 06:59 06:59
Intake Total 5107 / 5259 304 / 304
Output Total 1550 / 1550 600 / 600
Balance 3557 / 3709 -296 / -296
SaO2 95
Nasal Cannula flow liters per 2
minute
Physical Exam
General: Comfortable
HEENT: Normocephalic
Cardiovascular: S1-S2
Respiratory: Clear
GI: Non Distended
Neurology: Awake
Skin: Warm
Labs/Micro/Reports
Lab Data
08/10/25 02:23
08/10/25 08:00
Laboratory Results
08/09/25
20:23
PT 16.3 H
INR 1.34
APTT 45.9 H
Microbiology
08/09/25 02:08 Nasal Swab Influenza Types A & B (SWAPNA) - Final
Influenza A Positive, NAAT
--- NOTE | 2025-08-10 09:15 | W.PN.HOSP.TC ---
Today's Communication/Plan
-
.
Assessment / Plan
Assessment / Plan
Physical Exam
General: Comfortable and Conversant
HEENT: Normocephalic and Anicteric
Respiratory: limited with some rales
Cardiac: S1/S2 and Regular Rhythm
GI: Soft, Non Tender and Non Distended
Musculoskeletal: No Clubbing, No Cyanosis
Skin: Warm and Dry
Neuro: Awake, Alert, Oriented and Nonfocal/grossly intact
Psych, calm
Impression:
65year-old with past medical history significant for insulin-dependent diabetes who presents to the emergency department with flulike symptoms. Diagnosed with influenza. Patient has had approximately 2 days of symptoms. He is now having nausea
and vomiting and is dehydrated. Clinical picture shows acidemia, no lactic acidosis, anion gap of 24 with a glucose of 184. Patient likely has known hypoglycemic DKA in the setting of SGLT2 inhibitor use.
Influenza bronchitis
Euglycemic DKA in the settings of SGLT2 inhibitor
Atypical chest pain
Other conditions
IDDM type II
Dyslipidemia
Hypertension
Hypothyroidism
Obesity with BMI of 31
Plan
Influenza A. Report symptoms for 2 days prior to presentation.
Stable respiratory status
Chest x-ray with no focal infiltrates.
Procalcitonin is elevated
Initiated on Tamiflu.
Mucolytic's
# Acute DKA in the settings of SGLT2 inhibitor.
metabolic acidosis
P
s/p insulin gtt
can change to SQ regimen
# chest pain
Left lower side, worse with breathing, c/w pleuritic pain
Could be pleurisy Vs others
Negative troponin
will d/w Pulmonary
Will give one dose of Dilaudid to help him breathe( unable to take deep breaths)
Change to Tylenol TID
Essential Hypertension
Hyponatremia
No confusion
# Hyperkalemia
resolved
Hyperlipidemia
- Continue atorvastatin
Anxiety/Depression
- Continue Lexapro for now though consider stopping if sodium level remains low
Hypothyroidism
- Continue Synthroid
DVT ppx: Lovenox
Total time spent to see the patient, examine the patient, review data and lab results, discuss treatment plan with patient, nursing staff around 55 minutes
Anticipated Discharge: > 48 hours
Subjective/Interval History
-
Date of Service: August 10, 2025
He complains of left lower pleuritic chest pain
Objective Data
-
Labs:
Laboratory Results
08/10/25 08/10/25 08/10/25
00:06 02:23 05:41
WBC 27.0 H
Hgb 14.2
Hct 42.1
Plt Count 199
Sodium 128 L 130 L Cancelled
Potassium 5.3 H 5.9 H Cancelled
Chloride 99 99 Cancelled
Carbon Dioxide 21 L 21 L Cancelled
BUN 19 19 Cancelled
Creatinine 0.9 1.0 Cancelled
Glucose 171 H 159 H Cancelled
Calcium 8.3 L 8.6 Cancelled
08/10/25 08/10/25
06:40 08:00
WBC
Hgb
Hct
Plt Count
Sodium 129 L Cancelled
Potassium 5.0 Cancelled
Chloride 100 Cancelled
Carbon Dioxide 21 L Cancelled
BUN 18 Cancelled
Creatinine 0.9 Cancelled
Glucose 169 H Cancelled
Calcium 8.3 L Cancelled
Vital Signs:
Vital Signs
Temp Pulse Resp BP Pulse Ox
97.9 F 96 26 127/76 95
08/10/25 07:16 08/10/25 06:00 08/10/25 06:00 08/10/25 06:00 08/10/25 06:00
I&O
08/09/25 08/10/25 08/11/25
06:59 06:59 06:59
Intake Total 5107 / 5259 456 / 456
Output Total 1550 / 1550 600 / 600
Balance 3557 / 4409 -144 / -144
[2025-08-10 09:22] LABS: Glucose - Point of Care 177 mg/dl (70-99)
[2025-08-10] MEDS: LANTUS 0.15 UNITS SC ×2 (10:26→22:06)
[2025-08-10 10:27] LABS: Glucose - Point of Care 140 mg/dl (70-99)
--- NOTE | 2025-08-10 11:02 | W.PN.UPDATE ---
Addendum entered and electronically signed by Rigo Tang MD 08/10/25 12:04:
No evidence for other embolus however official report.
Continue with current plan
Discontinue insulin drip
Transition to telemetry
Pulmonary will follow
Original Note:
Update Note
Progress Note Update
CT chest preliminarily to my view-left lower lobe airspace disease with air bronchograms suggestive of pneumonia. Associated small effusion.
No saddle embolism-Will wait for official report
Based on preliminary findings start antibiotics ceftriaxone/doxycycline
Sputum culture
Acapella device
Will have to monitor for pleural effusion worsening.
[2025-08-10 11:20] LABS: Glucose - Point of Care 139 mg/dl (70-99)
[2025-08-10] MEDS: NOVOLOG FLEXPEN-LOW RESISTANCE SC (11:30)
[2025-08-10] MEDS: ROCEPHIN 1000 MG IV (12:07)
[2025-08-10] MEDS: VIBRAMYCIN 100 MG PO ×2 (12:08→20:06)
[2025-08-10] MEDS: STERILE WATER FOR INJECTION 10 ML IV (12:08)
[2025-08-10] MEDS: DULCOLAX 10 MG PO (13:44)
[2025-08-10 16:43] LABS: Glucose - Point of Care 205 mg/dl (70-99)
[2025-08-10] MEDS: NOVOLOG FLEXPEN-LOW RESISTANCE 2 UNITS SC (16:50)
[2025-08-10] MEDS: LOVENOX 40 MG SC (17:36)
[2025-08-10 22:18] LABS: Glucose - Point of Care 364 mg/dl (70-99)
[2025-08-10] MEDS: CARDIZEM 5 MG IV (22:37)
[2025-08-10] MEDS: CARDIZEM 125 IV (22:40)
[2025-08-10] MEDS: NOVOLOG FLEXPEN 7 UNITS SC (22:42)
--- NOTE | 2025-08-10 23:03 | PTCARENOTE ---
~2211 pt HR convert to what appeared to be afib RVR with HR to 170s on telemetry. Confirmed with EKG. Pt asymptomatic, denied any fluttering in chest or lightheadedness/dizziness. BP stable. Vagal maneuvers unsuccessful. TT TOOL LIAISON Michaela; Cardizem bolus
and gtt ordered and administered - see OCT. Labs drawn and sent.
BG 364 on HS check. Ordered lantus and additional 7u novolog ordered and administered.
--- NOTE | 2025-08-10 23:24 | W.PN.UPDATE ---
Addendum entered and electronically signed by ULISES Britton 08/11/25 00:22:
Pt back in DKA with gap of 17. Will initiate DKA protocol again and make ICU LOC
Original Note:
Update Note
Progress Note Update
0 RN reports HR to 170s EKG done and afib with RVR. Will check bmp and mag. BG elevated 364. Making sure DKA still resolved.
Cardizem bolus and then gtt. Consult [facility] cardiology. Change to IMU status.
[2025-08-10 23:38] LABS: Blood Urea Nitrogen 20 mg/dl (9-20); Calcium 8.0 mg/dl (8.4-10.2); Carbon Dioxide 12 mmol/L (22-30); Chloride 101 mmol/L (98-107); Estimated Creatinine Clearance 112 ml/min; Glucose 315 mg/dl (70-99); Magnesium 2.3 mg/dl (1.6-2.3); Potassium 5.0 mmol/L (3.5-5.1); Sodium 130 mmol/L (135-145); eGFR > 60.00
[2025-08-10] MEDS: LOPRESSOR 5 MG IV (23:55)
[2025-08-11] VITALS (49 sets, daily range): BP systolic 89–138; BP diastolic 68–115; PULSE 110; O2SAT 96; BMI 30.6
[2025-08-11] MEDS: NSS with KCL 20 MEQ 1000 IV (00:03)
[2025-08-11] MEDS: NOVOLIN R INSULIN INFUSION 100 IV (00:04)
[2025-08-11 00:21] LABS: Glucose - Point of Care 270 mg/dl (70-99)
--- NOTE | 2025-08-11 00:22 | PTCARENOTE ---
Labs results; DKA. Upgrade to ICU. HR maintaining rates up to 200s on max dose of cardizem gtt. 5mg Lopressor IV push ordered and administered - see OCT. Insulin gtt and IVF as ordered.
[2025-08-11 01:05] LABS: Glucose - Point of Care 264 mg/dl (70-99)
[2025-08-11 02:06] LABS: Glucose - Point of Care 210 mg/dl (70-99)
[2025-08-11] MEDS: D5/0.45%NSS with KCL 20 MEQ 1000 IV ×4 (02:09→22:28)
[2025-08-11 02:30] LABS: Hematocrit 39.8 % (39.0-52.0); Hemoglobin 13.5 g/dL (13.0-18.0); Mean Corp Hgb Conc. 33.9 g/dL (33.0-37.0); Mean Corpuscular Volume 84.1 fL (80.0-94.0); Platelet Count 202 10^3/uL (130-400); Red Cell Dist. Width 15.3 % (11.5-14.5)
[2025-08-11 02:54] LABS: Blood Urea Nitrogen 19 mg/dl (9-20); Calcium 8.4 mg/dl (8.4-10.2); Carbon Dioxide 14 mmol/L (22-30); Chloride 105 mmol/L (98-107); Estimated Creatinine Clearance 100 ml/min; Glucose 225 mg/dl (70-99); Potassium 4.5 mmol/L (3.5-5.1); Sodium 134 mmol/L (135-145); eGFR > 60.00
[2025-08-11 03:06] LABS: Glucose - Point of Care 212 mg/dl (70-99)
[2025-08-11 04:01] LABS: Glucose - Point of Care 232 mg/dl (70-99)
[2025-08-11] MEDS: SYNTHROID 75 MCG PO (05:06)
[2025-08-11 05:11] LABS: Glucose - Point of Care 237 mg/dl (70-99)
[2025-08-11 05:56] LABS: Glucose - Point of Care 258 mg/dl (70-99)
--- NOTE | 2025-08-11 06:04 | PTCARENOTE ---
Pt occasionally taking oxygen off, RA POX 80s. 6L NC 93-94%. Reinforced importance of continuing to wear NC. HR remains afib RVR 120s-150s.
[2025-08-11] MEDS: CARDIZEM 125 IV ×2 (06:39→20:40)
[2025-08-11 06:42] LABS: Blood Urea Nitrogen 19 mg/dl (9-20); Calcium 7.9 mg/dl (8.4-10.2); Carbon Dioxide 15 mmol/L (22-30); Chloride 103 mmol/L (98-107); Estimated Creatinine Clearance 111 ml/min; Glucose 225 mg/dl (70-99); Potassium 4.1 mmol/L (3.5-5.1); Sodium 130 mmol/L (135-145); eGFR > 60.00
--- NOTE | 2025-08-11 07:00 | PTCARENOTE ---
Received patient A&Ox3, c/o left pleuritic pain, Afib with RVR in 130s to 140s, BP WNL, on Cardizem and Insulin drips, NC 6L, NPO, continent.
[2025-08-11 07:06] LABS: Glucose - Point of Care 215 mg/dl (70-99)
[2025-08-11] MEDS: TORADOL 15 MG IV (07:12)
--- NOTE | 2025-08-11 07:54 | CON.CAR ---
Addendum entered and electronically signed by Dionicio Smith MD 08/11/25 09:54:
I saw and examined the patient.
The Plug Cutting Machine Operator's note was reviewed and I agree with the note.
Comment: Briefly, 65-year-old man past medical history of insulin-dependent diabetes and long COVID who presents with fever/chills and myalgias diagnosed with influenza A and found to be in DKA. He was being treated in the medical ICU for DKA when
he developed atrial fibrillation with rapid ventricular response around 10 PM on 08/10 for which cardiology is consulted. A-fib is a new diagnosis for him.
Patient remains in rapid atrial fibrillation today although does not seem to be overtly symptomatic.
Currently on diltiazem drip, but heart rate still above goal of 110 bpm
Will add p.o. metoprolol for additional rate control
If patient does not spontaneously convert would consider HOLGER/direct-current cardioversion next week versus as an outpatient
Explained risk of cardioembolic stroke and recommend starting oral anticoagulation
For completeness would check echo - inpatient versus outpatient
Reviewed with patient and family at bedside
Original Note:
Consultation
Consultation Request
Date/Time Consultation Performed: 08/11/25
Requesting Provider: Dr. Baker
Performing Provider: Suzie Mitchell PA-C for Dr. Smith
Reason for Consultation: afib
Medical History
-
Chief Complaint: influenza A
History of Present Illness:
Patient is 65 yo F with PMH of DM2, HTN, HLD, hypothyroidism, anxiety, long covid who presented to [facility] due to progressive fevers/chills, body aches. Did not have significant relief with OTC cough/cold medications. Reports symptoms have been
progressive since onset. States also has L sided pleuritic chest discomfort which he states is significant with cough, hiccups, etc. He did receive flu vaccine in May. Cardiology consulted for evaluation as patient went into afib with RVR around
22:15 last evening. Denies palpitations. Denies history of afib in past.
PMH:
HTN
HLD
IDDM
Hypothyroidism
Anxiety
Long covid
Past Medical History
Past Medical History: Other (in HPI)
Social History
Tobacco: Non-Smoker
Alcohol: None
Personal:
Living: With Family
Employment: Employed
Family History
Family History: CAD and Diabetes
Allergies / Home Medications
Allergy/AdvReac Type Severity Reaction Status Date / Time
No Known Allergies Allergy Verified 08/09/25 01:59
�Medication �Instructions �Recorded �Confirmed �Type
atorvastatin 10 mg tablet 10 mg PO DAILY High Cholesterol 07/29/22 08/09/25 History
empagliflozin 25 mg tablet 25 mg PO DAILY Diabetes 07/29/22 08/09/25 History
(Jardiance)
escitalopram oxalate 20 mg tablet 20 mg PO DAILY Mental 07/29/22 08/09/25 History
(Lexapro) Health/Anxiety
levothyroxine 75 mcg tablet 75 mcg PO DAILY@0700 Thyroid 06/23/23 08/09/25 History
insulin glargine 100 unit/mL (3 20 unit SC BID IDDM 08/09/25 08/09/25 History
mL) subcutaneous pen (Lantus
Solostar U-100 Insulin)
ramipril 5 mg capsule 5 mg PO DAILY Blood Pressure 08/09/25 08/09/25 History
tirzepatide 10 mg/0.5 mL 10 mg SC WE Diabetes 08/09/25 08/09/25 History
subcutaneous pen injector
(Mounjaro)
Review of Systems
-
History Source: Patient
All other systems: Negative unless noted
Physical Exam
Vital Signs
Temp Pulse Resp BP Pulse Ox
98.2 F 128 27 116/78 91
08/11/25 03:17 08/11/25 06:30 08/11/25 06:30 08/11/25 06:30 08/11/25 06:30
Lab Results
08/11/25 02:13
08/11/25 20:00
Troponin I < 0.012 ng/ml 08/09/25 20:23
Physical Exam
General: No Apparent Distress, Comfortable and Other (on supp O2)
HEENT: Normocephalic, Anicteric and Moist Mucous Membranes
Respiratory: Rhonchi and Non Labored Respirations
Cardiac: S1/S2 and Irregular Rhythm
GI: Soft, Non Tender, Non Distended and Normal Bowel Sounds
Musculoskeletal: No Clubbing, No Cyanosis and No Edema
Skin: Warm and Dry
Neuro: AO x 3
Impression / Plan
-
Primary Conduit Bender: Dr. Paiz, last seen in 2020
Assessment:
Presentation with fevers/chills/body aches
Influenza A
DKA
CP with negative troponins, suspected noncardiac
Hyponatremia
HTN
HLD
IDDM
Hypothyroidism
Anxiety
Long covid
ECHO 07/07/23: EF 60 to 65%, aortic sclerosis, trace AR
Plan:
- Patient presented with symptoms of fevers, chills, body aches and tested positive for influenza A
- Also with euvolemic DKA, currently on insulin drip
- Also complained of chest discomfort, pleuritic in nature, worse with coughing, hiccups. Troponins serially negative, suspected noncardiac
- Last evening, patient noted to go into A-fib with RVR, new diagnosis for patient. He is asymptomatic.
- Currently on IV Cardizem gtt at 15. May need to allow for degree of tachycardia given flu and DKA. will add lopressor 25mg BID and follow HR trends on tele
- [id number] score of 3 for age, DM, HTN. will initiate OAC with eliquis. discussed with patient who is agreeable
- last echo from 2022 as above. will repeat while admitted
- continue supportive care of flu. on IVF and tamiflu.
Data Reviewed
-
EKG: Tracing Personally Visualized and interpreted
Radiology: Report Reviewed by me
CT Scan: Report Reviewed by me
Medical Tests (Nuc Med, Echo etc): Report Reviewed by me
Labs: Labs Reviewed by me
Old Records: Reviewed
[2025-08-11 07:58] LABS: Glucose - Point of Care 223 mg/dl (70-99)
[2025-08-11] MEDS: TAMIFLU 75 MG PO ×2 (08:10→20:21)
[2025-08-11] MEDS: VIBRAMYCIN 100 MG PO ×2 (08:10→20:22)
[2025-08-11] MEDS: LEXAPRO 20 MG PO (08:10)
[2025-08-11] MEDS: TYLENOL 1000 MG PO ×3 (08:10→20:21)
[2025-08-11] MEDS: LIPITOR 10 MG PO (08:10)
[2025-08-11] MEDS: LIDOCAINE 4% PATCH 1 PATCH TOPICAL (08:10)
[2025-08-11] MEDS: ROBITUSSIN DM 5 ML PO (08:10)
[2025-08-11 09:02] LABS: Glucose - Point of Care 204 mg/dl (70-99)
[2025-08-11] MEDS: ELIQUIS 5 MG PO ×2 (09:42→20:21)
[2025-08-11] MEDS: LOPRESSOR 25 MG PO ×2 (09:42→20:21)
--- NOTE | 2025-08-11 09:48 | W.PN.HOSP.TC ---
Today's Communication/Plan
-
.
Assessment / Plan
Assessment / Plan
Physical Exam
General: Comfortable and Conversant
HEENT: Normocephalic and Anicteric
Respiratory: limited with some rales
Cardiac: S1/S2 and Regular Rhythm
GI: Soft, Non Tender and Non Distended
Musculoskeletal: No Clubbing, No Cyanosis
Skin: Warm and Dry
Neuro: Awake, Alert, Oriented and Nonfocal/grossly intact
Psych, calm
Impression:
65year-old with past medical history significant for insulin-dependent diabetes who presents to the emergency department with flulike symptoms. Diagnosed with influenza. Patient has had approximately 2 days of symptoms. He is now having nausea
and vomiting and is dehydrated. Clinical picture shows acidemia, no lactic acidosis, anion gap of 24 with a glucose of 184. Patient likely has known hypoglycemic DKA in the setting of SGLT2 inhibitor use.
Influenza bronchitis
Euglycemic DKA in the settings of SGLT2 inhibitor
Atypical chest pain
Other conditions
IDDM type II
Dyslipidemia
Hypertension
Hypothyroidism
Obesity with BMI of 31
Plan
# New onset A fib
No palpitation. No prior history
Continue with Cardizem drip
[id number] around 3. Started on Eliquis
We can start oral BB
Order echo
Appreciate cardiology help
#CAP with Influenza A. Report symptoms for 2 days prior to presentation.
He reports significant left lower pleuritic chest pain
started on IV Abx with
Procalcitonin is elevated
Finish course of Tamiflu.
Mucolytic's
Appreciate pulmonary help
# Acute DKA
metabolic acidosis
Back on insulin gtt
will c/w insulin for now
Monitor blood work
# Essential Hypertension
Hyponatremia
No confusion
# Hyperkalemia
resolved
Hyperlipidemia
- Continue atorvastatin
Anxiety/Depression
- Continue Lexapro for now though consider stopping if sodium level remains low
Hypothyroidism
- Continue Synthroid
DVT ppx: Lovenox
Total time spent to see the patient, examine the patient, review data and lab results, discuss treatment plan with patient, nursing staff around 55 minutes
Anticipated Discharge: > 48 hours
Subjective/Interval History
-
Date of Service: August 11, 2025
Events over night noted
Currently, left pleuritic chest pain, no palpitations
No abdominal pain or nausea
Objective Data
-
Labs:
Laboratory Results
08/10/25 08/11/25 08/11/25
22:52 00:00 02:13
WBC 28.7 H
Hgb 13.5
Hct 39.8
Plt Count 202
Sodium 130 L Cancelled 134 L
Potassium 5.0 Cancelled 4.5
Chloride 101 Cancelled 105
Carbon Dioxide 12 L* Cancelled 14 L*
BUN 20 Cancelled 19
Creatinine 0.8 Cancelled 0.9
Glucose 315 H Cancelled 225 H
Calcium 8.0 L Cancelled 8.4
08/11/25 08/11/25 08/11/25
04:00 05:55 06:00
WBC
Hgb
Hct
Plt Count
Sodium Cancelled 130 L Cancelled
Potassium Cancelled 4.1 Cancelled
Chloride Cancelled 103 Cancelled
Carbon Dioxide Cancelled 15 L Cancelled
BUN Cancelled 19 Cancelled
Creatinine Cancelled 0.8 Cancelled
Glucose Cancelled 225 H Cancelled
Calcium Cancelled 7.9 L Cancelled
08/11/25 08/11/25 08/11/25
08:00 10:00 12:00
WBC
Hgb
Hct
Plt Count
Sodium Cancelled Pending Cancelled
Potassium Cancelled Pending Cancelled
Chloride Cancelled Pending Cancelled
Carbon Dioxide Cancelled Pending Cancelled
BUN Cancelled Pending Cancelled
Creatinine Cancelled Pending Cancelled
Glucose Cancelled Pending Cancelled
Calcium Cancelled Pending Cancelled
08/11/25 08/11/25 08/11/25
14:00 16:00 20:00
WBC
Hgb
Hct
Plt Count
Sodium Pending Cancelled Cancelled
Potassium Pending Cancelled Cancelled
Chloride Pending Cancelled Cancelled
Carbon Dioxide Pending Cancelled Cancelled
BUN Pending Cancelled Cancelled
Creatinine Pending Cancelled Cancelled
Glucose Pending Cancelled Cancelled
Calcium Pending Cancelled Cancelled
Vital Signs:
Vital Signs
Temp Pulse Resp BP Pulse Ox
98.1 F 136 27 118/76 91
08/11/25 08:02 08/11/25 09:42 08/11/25 06:30 08/11/25 09:42 08/11/25 06:30
I&O
08/10/25 08/11/25 08/12/25
06:59 06:59 06:59
Intake Total 5107 / 5259 2247 / 2415 504 / 504
Output Total 1550 / 1550 2620 / 2620
Balance 3557 / 3709 -373 / -205 504 / 504
--- NOTE | 2025-08-11 09:50 | CM ---
F/U: Patient went into afib with RVR last night, on Cardizem/ insulin drip. Patient otherwise Independent with ADLS'. PLAN: Anticipate Home No Needs vs. VN.
[2025-08-11 09:51] LABS: Glucose - Point of Care 205 mg/dl (70-99)
--- NOTE | 2025-08-11 10:06 | W.PN.INTV ---
Today's Communication / Plan
Recommendations
Continue antibiotics
Sputum culture pending
Back on insulin drip
Follow DKA protocol
Eventual transition to subcu insulin
Heart rate control with Cardizem drip
Anticoagulation started
Echocardiogram is pending
Continue ICU monitoring for now
Assessment
-
Mr. Duran is a 65-year-old male with a history of insulin-dependent diabetes, hypothyroid, hypertension, hyperlipidemia, anxiety, GERD, long COVID who presented with generalized aches and malaise for 2-3 days. He reports having fevers and chills as
well as cough and pleuritic chest pain with decreasing appetite increasing nausea and episode of vomiting. Labs suggestive of euglycemic DKA and influenza A.
-
DKA recurred-back on insulin drip 08/11/2025.
Also developed rapid atrial fibrillation.
Back on ICU level of care.
-
Euglycemic DKA--likely in the setting of influenza A/Mounjaro and Jardiance.
History of type 2 diabetes on insulin
home insulin Lantus 20 units subcu twice a day
Back on insulin drip
Continue BMPs per protocol
Electrolytes are balanced
Denies nausea or vomiting
Normal renal function
Once anion gap is closed we will transition back to Lantus at 20 units twice a day.
Eventual diabetes nurse practitioner consultation
-
Diabetic diet--patient is having poor appetite
Hold Mounjaro and Jardiance for now
IV fluids continue for now.
Influenza A: Complete 5 days of Tamiflu
Elevated procalcitonin.
CT chest 08/10/2025: No pulmonary embolism. Small left pleural effusion. Large left lower lobe infiltrate likely bacterial pneumonia.
Ceftriaxone/doxycycline started 08/10/2025
Negative Legionella and strep pneumo antibody
Sputum culture pending
Leukocytosis noted-he remains afebrile.
Not hypoxemic
Isolation per protocol.
-
Left-sided pleuritic type chest pain. Due to pneumonia-pleuritic type chest pain/pleurisy.
No DVT or pulmonary embolism.
Possibly related to infection
Slightly tachycardic this morning
Has been requiring significant amount of analgesia including narcotics
Lower extremity Dopplers negative
-
Rapid atrial fibrillation: Cardiology has been consulted-correspondence reviewed.
Cardizem drip continues for heart rate control.
Beta-mikey started as well
Echocardiogram ordered
Troponins were negative
Anticoagulation
--
Continue analgesia as able
Incentive spirometer encouraged
-
Will advance diet as above
-
Antiemetics: Zofran
GI PPx: Protonix 40 mg daily
DVT PPx: Lovenox
Peripheral:
Right cephalic 20-gauge
Right hand 20-gauge
Dr. Patterson updated family at the bedside 08/11/2025.
CODE STATUS: Full code
Critical care statement: A total of 33 minutes of critical care time was provided for this patient today. This includes management of unstable vital signs, evaluation of the patient at bedside, reviewing the patient's pertinent medical records
including ventilator settings, arterial blood gases, radiographs, microbiology, laboratory evaluations and discussion with primary team, critical care nursing, and respiratory therapy.
Subjective Dataa
Subjective Data
Date of Service:
Date of Service: August 11, 2025
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
Subjective:
This morning denies any significant chest pain or shortness of breath at rest
Intermittent coughing with minimal phlegm production
Denies hemoptysis
Denies orthopnea
Denies palpitation
Review of Systems
General: Fever (n)
Cardiopulmonary: Dyspnea (none at rest), Cough and Sputum Production (mild)
GI: Abdominal Pain (n) and Nausea (n)
Objective Data
Data Reviewed
Vital Signs / I&O / Oxygen:
Vital Signs
Temp Pulse Resp BP Pulse Ox
98.1 F 136 25 118/76 91
08/11/25 08:02 08/11/25 09:42 08/11/25 09:30 08/11/25 09:42 08/11/25 09:30
Intake and Output
08/10/25 08/11/25 08/12/25
06:59 06:59 06:59
Intake Total 5107 / 5259 2247 / 2415 504 / 504
Output Total 1550 / 1550 2620 / 2620
Balance 3557 / 3709 -373 / -205 504 / 504
SaO2 91
Nasal Cannula flow liters per 4
minute
Physical Exam
General: Comfortable
HEENT: Normocephalic
Cardiovascular: S1-S2
Respiratory: Clear
GI: Non Distended
Neurology: Awake
Skin: Warm
Labs/Micro/Reports
Lab Data
08/11/25 02:13
08/11/25 20:00
Microbiology
08/11/25 00:09 Urine Legionella Urinary Antigen - Final
Negative for Legionella pneumophila Serogroup 1 antigen.
A negative result does not rule out the possiblity of
Legionella infection due to other serogroups or species of
Legionella. Clinical correlation is recommended.
08/11/25 00:09 Urine Streptococcus pneumoniae Antigen (M - Final
Negative for Streptococcus pneumoniae antigen.
A negative result does not exclude infection with
Streptococcus pneumoniae. Clinical correlation is
recommended.
08/09/25 02:08 Nasal Swab Influenza Types A & B (SWAPNA) - Final
Influenza A Positive, NAAT
[2025-08-11 10:49] LABS: Blood Urea Nitrogen 20 mg/dl (9-20); Calcium 8.2 mg/dl (8.4-10.2); Carbon Dioxide 14 mmol/L (22-30); Chloride 104 mmol/L (98-107); Estimated Creatinine Clearance 111 ml/min; Glucose 194 mg/dl (70-99); Potassium 4.1 mmol/L (3.5-5.1); Sodium 131 mmol/L (135-145); eGFR > 60.00
[2025-08-11 11:01] LABS: Glucose - Point of Care 196 mg/dl (70-99)
[2025-08-11 12:00] LABS: Glucose - Point of Care 216 mg/dl (70-99)
[2025-08-11] MEDS: STERILE WATER FOR INJECTION 10 ML IV (12:02)
[2025-08-11] MEDS: ROCEPHIN 1000 MG IV (12:02)
[2025-08-11] MEDS: MIRALAX 17 GRAMS PO (12:02)
--- NOTE | 2025-08-11 12:44 | PTCARENOTE ---
Reassessed the patient, OOB to chair, turned off Cardizem drip d/t soft BP, no other changes from previous assessments.
[2025-08-11 13:01] LABS: Glucose - Point of Care 203 mg/dl (70-99)
[2025-08-11 14:04] LABS: Glucose - Point of Care 198 mg/dl (70-99)
[2025-08-11 14:45] LABS: Blood Urea Nitrogen 22 mg/dl (9-20); Calcium 8.2 mg/dl (8.4-10.2); Carbon Dioxide 16 mmol/L (22-30); Chloride 105 mmol/L (98-107); Estimated Creatinine Clearance 98 ml/min; Glucose 199 mg/dl (70-99); Potassium 4.0 mmol/L (3.5-5.1); Sodium 130 mmol/L (135-145); eGFR > 60.00
[2025-08-11 15:04] LABS: Glucose - Point of Care 191 mg/dl (70-99)
[2025-08-11 16:03] LABS: Glucose - Point of Care 209 mg/dl (70-99)
--- NOTE | 2025-08-11 16:30 | PTCARENOTE ---
Reassessed the patient, back to bed from chair, will continue Cardizem and Insulin drips per protocol.
[2025-08-11 16:55] LABS: Glucose - Point of Care 220 mg/dl (70-99)
[2025-08-11 18:00] LABS: Glucose - Point of Care 225 mg/dl (70-99)
[2025-08-11 18:22] LABS: Blood Urea Nitrogen 22 mg/dl (9-20); Calcium 8.2 mg/dl (8.4-10.2); Carbon Dioxide 19 mmol/L (22-30); Chloride 103 mmol/L (98-107); Estimated Creatinine Clearance 111 ml/min; Glucose 234 mg/dl (70-99); Magnesium 2.4 mg/dl (1.6-2.3); Potassium 4.2 mmol/L (3.5-5.1); Sodium 128 mmol/L (135-145); eGFR > 60.00
[2025-08-11 18:57] LABS: Glucose - Point of Care 239 mg/dl (70-99)
[2025-08-11 20:11] LABS: Glucose - Point of Care 251 mg/dl (70-99)
[2025-08-11] MEDS: MELATONIN 5 MG PO (20:21)
[2025-08-11] MEDS: SENOKOT-S 1 TABLET PO (20:22)
[2025-08-11 20:57] LABS: Glucose - Point of Care 231 mg/dl (70-99)
--- NOTE | 2025-08-11 21:00 | PTCARENOTE ---
Assumed care at 1900. Afib on the monitor. On cardizem, insulin, d5 1/2 NS. Droplet precautions maintained. On midflow 8 liters. See worklist for nursing shift assessment details.
[2025-08-11 22:04] LABS: Glucose - Point of Care 227 mg/dl (70-99)
[2025-08-11 23:00] LABS: Glucose - Point of Care 234 mg/dl (70-99)
[2025-08-11 23:30] LABS: Blood Urea Nitrogen 20 mg/dl (9-20); Calcium 8.0 mg/dl (8.4-10.2); Carbon Dioxide 18 mmol/L (22-30); Chloride 104 mmol/L (98-107); Estimated Creatinine Clearance 111 ml/min; Glucose 247 mg/dl (70-99); Potassium 4.2 mmol/L (3.5-5.1); Sodium 130 mmol/L (135-145); eGFR > 60.00
[2025-08-11 23:55] LABS: Glucose - Point of Care 233 mg/dl (70-99)
[2025-08-12] VITALS (27 sets, daily range): BP systolic 105–151; BP diastolic 69–114; BMI 32.0
--- NOTE | 2025-08-12 | PTCARENOTE ---
No change from previous assessment except cardizem increased to 15 mg/hr. Remains in afib. Midflow increased to 15 lpm due to 02 sats in the high 80s.
[2025-08-12 01:12] LABS: Glucose - Point of Care 210 mg/dl (70-99)
[2025-08-12] MEDS: NOVOLIN R INSULIN INFUSION 100 IV (02:00)
[2025-08-12 02:12] LABS: Glucose - Point of Care 231 mg/dl (70-99)
[2025-08-12 03:17] LABS: Glucose - Point of Care 206 mg/dl (70-99)
[2025-08-12 03:29] LABS: Hematocrit 37.1 % (39.0-52.0); Hemoglobin 13.0 g/dL (13.0-18.0); Mean Corp Hgb Conc. 35.0 g/dL (33.0-37.0); Mean Corpuscular Volume 80.1 fL (80.0-94.0); Platelet Count 242 10^3/uL (130-400); Red Cell Dist. Width 15.5 % (11.5-14.5)
[2025-08-12 03:54] LABS: Blood Urea Nitrogen 19 mg/dl (9-20); Calcium 8.1 mg/dl (8.4-10.2); Carbon Dioxide 19 mmol/L (22-30); Chloride 103 mmol/L (98-107); Estimated Creatinine Clearance > 125 ml/min; Glucose 212 mg/dl (70-99); Potassium 4.5 mmol/L (3.5-5.1); Sodium 131 mmol/L (135-145); eGFR > 60.00
[2025-08-12] MEDS: D5/0.45%NSS with KCL 20 MEQ 1000 IV (04:07)
[2025-08-12] MEDS: SYNTHROID 75 MCG PO (04:08)
[2025-08-12 04:14] LABS: Glucose - Point of Care 268 mg/dl (70-99)
[2025-08-12] MEDS: TORADOL 15 MG IV ×2 (04:16→19:45)
--- NOTE | 2025-08-12 04:31 | PTCARENOTE ---
No change from previous assessment except patient converted to NSR around 0330. Cardizem gtt weaned off. PRN toradol given for pleuritic pain.
[2025-08-12 05:12] LABS: Glucose - Point of Care 211 mg/dl (70-99)
[2025-08-12 06:10] LABS: Glucose - Point of Care 198 mg/dl (70-99)
[2025-08-12 07:07] LABS: Glucose - Point of Care 208 mg/dl (70-99)
[2025-08-12] MEDS: TAMIFLU 75 MG PO ×2 (07:41→19:37)
[2025-08-12] MEDS: VIBRAMYCIN 100 MG PO ×2 (07:41→19:37)
[2025-08-12] MEDS: LEXAPRO 20 MG PO (07:42)
[2025-08-12] MEDS: LIPITOR 10 MG PO (07:42)
[2025-08-12] MEDS: ELIQUIS 5 MG PO ×2 (07:42→19:37)
[2025-08-12] MEDS: LIDOCAINE 4% PATCH 1 PATCH TOPICAL (07:42)
[2025-08-12 08:14] LABS: Glucose - Point of Care 208 mg/dl (70-99)
[2025-08-12 08:24] LABS: Glucose - Point of Care 205 mg/dl (70-99)
[2025-08-12] MEDS: LOPRESSOR 50 MG PO ×2 (08:31→19:37)
[2025-08-12] MEDS: LANTUS 0.2 UNITS SC ×2 (08:31→21:10)
--- NOTE | 2025-08-12 08:57 | PTCARENOTE ---
administered lantus and patient has sliding scale. lopressor dose doubled per physician. Patient remains OOB to chair, lowered oxygen to 6L midflow, 97%. patient feels well, is pleasant, conversant, not short of breath, pain level reported is 1.
will continue to lower oxygen requirements as tolerated.
--- NOTE | 2025-08-12 09:06 | W.PN.INTV ---
Today's Communication / Plan
Recommendations
Subcu insulin
Follow heart rate on telemetry
Increase activity as able
Wean down FiO2
Continue antibiotics
Incentive spirometry encouraged
Possible transfer to telemetry later today
Assessment
-
Mr. Duran is a 65-year-old male with a history of insulin-dependent diabetes, hypothyroid, hypertension, hyperlipidemia, anxiety, GERD, long COVID who presented with generalized aches and malaise for 2-3 days. He reports having fevers and chills as
well as cough and pleuritic chest pain with decreasing appetite increasing nausea and episode of vomiting. Labs suggestive of euglycemic DKA and influenza A.
-
DKA recurred-back on insulin drip 08/11/2025.
Also developed rapid atrial fibrillation.
Back on ICU level of care.
-
Euglycemic DKA--likely in the setting of influenza A/Connor and Joanie.
History of type 2 diabetes on insulin
home insulin Lantus 20 units subcu twice a day
Insulin drip discontinued 08/12/2025
Restarted her home Lantus 20 units twice a day.
Insulin sliding scale
Discontinue IV fluids
-
Electrolytes are balanced
Denies nausea or vomiting-tolerating diet.
Normal renal function
Eventual diabetes nurse practitioner consultation
Hold Mounjaro and Jardiance for now
-
Influenza A: Complete 5 days of Tamiflu-also left lower lobe pneumonia likely bacterial.
Elevated procalcitonin.
CT chest 08/10/2025: No pulmonary embolism. Small left pleural effusion. Large left lower lobe infiltrate likely bacterial pneumonia.
Ceftriaxone/doxycycline started 08/10/2025
Negative Legionella and strep pneumo antibody
Sputum culture-poor sample.
Leukocytosis noted-he remains afebrile.
Repeat chest x-ray PA and lateral [id number] on left pleural effusion. If there is significant left pleural effusion on x-ray ultrasound and evaluation for thoracentesis will be needed at that point.
Isolation per protocol.
-
Hypoxemic respiratory failure improving: Currently 5 L nasal cannula.
Currently comfortable
On top of pneumonia suspect some degree of hypoventilation due to his left-sided pleuritic type chest pain.
Currently improved.
Incentive spirometry encouraged
Increase activity as tolerated
Wean off FiO2 as able.
-
Left-sided pleuritic type chest pain. Due to pneumonia-pleuritic type chest pain/pleurisy.
No DVT or pulmonary embolism.
Possibly related to infection
Improved. Continue analgesia as needed.
Lower extremity Dopplers negative
-
Rapid atrial fibrillation: Cardiology has been consulted-correspondence reviewed.
Cardizem drip has been discontinued
Continue zosc-[id number]-arhbavm as able.
Echocardiogram 08/11/2025: LVEF 50%. Normal right ventricular size and function. No significant valvular abnormality.
Troponins were negative
Anticoagulation-per cardiology
--
Physical therapy/Occupational Therapy as tolerated
-
Antiemetics: Zofran
GI PPx: Protonix 40 mg daily
DVT PPx: Lovenox
Dr. Patterson updated family at the bedside 08/11/2025.
CODE STATUS: Full code
If heart rate continues to be controlled off Cardizem drip-Will transfer to telemetry later today.
Subjective Dataa
Subjective Data
Date of Service:
Date of Service: August 12, 2025
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
Subjective:
Sitting on a chair-comfortable.
Left-sided pleuritic type chest pain minimal
No significant phlegm production
He was able to ambulate to the restroom without significant shortness of breath.
Heart rate has improved-Cardizem drip discontinued
Review of Systems
General: Fever (n)
Cardiopulmonary: Dyspnea (none at rest)
GI: Abdominal Pain (n) and Nausea (n)
Objective Data
Data Reviewed
Vital Signs / I&O / Oxygen:
Vital Signs
Temp Pulse Resp BP Pulse Ox
98.2 F 91 35 142/78 97
08/12/25 07:37 08/12/25 08:30 08/12/25 08:30 08/12/25 08:30 08/12/25 08:30
Intake and Output
08/11/25 08/12/25 08/13/25
06:59 06:59 06:59
Intake Total 2247 / 2415 3899 / 4052 756 / 756
Output Total 2620 / 2620 1575 / 1575 400 / 400
Balance -373 / -205 2324 / 2477 356 / 356
SaO2 97
Nasal Cannula flow liters per 6
minute
Physical Exam
General: Comfortable
HEENT: Normocephalic
Cardiovascular: S1-S2
Respiratory: Clear and Other (Decreased breath sounds on left. )
GI: Non Distended
Neurology: Awake, Alert, AO x 3 and No Motor Deficits
Skin: Warm
Labs/Micro/Reports
Lab Data
08/12/25 03:06
08/12/25 03:06
Microbiology
08/10/25 13:49 Nose MRSA Screen - Final
No Methicillin Resistant Staphylococcus aureus isolated.
08/11/25 08:58 Sputum Respiratory Culture - Final
08/11/25 08:58 Sputum Gram Stain - Final
08/11/25 00:09 Urine Legionella Urinary Antigen - Final
Negative for Legionella pneumophila Serogroup 1 antigen.
A negative result does not rule out the possiblity of
Legionella infection due to other serogroups or species of
Legionella. Clinical correlation is recommended.
08/11/25 00:09 Urine Streptococcus pneumoniae Antigen (M - Final
Negative for Streptococcus pneumoniae antigen.
A negative result does not exclude infection with
Streptococcus pneumoniae. Clinical correlation is
recommended.
--- NOTE | 2025-08-12 09:41 | W.PN.HOSP.TC ---
Today's Communication/Plan
-
.
Assessment / Plan
Assessment / Plan
Physical Exam
General: Comfortable and Conversant
HEENT: Normocephalic and Anicteric
Respiratory: limited with some rales
Cardiac: S1/S2 and Regular Rhythm
GI: Soft, Non Tender and Non Distended
Musculoskeletal: No Clubbing, No Cyanosis
Skin: Warm and Dry
Neuro: Awake, Alert, Oriented and Nonfocal/grossly intact
Psych, calm
Impression:
65year-old with past medical history significant for insulin-dependent diabetes who presents to the emergency department with flulike symptoms. Diagnosed with influenza. Patient has had approximately 2 days of symptoms. He is now having nausea
and vomiting and is dehydrated. Clinical picture shows acidemia, no lactic acidosis, anion gap of 24 with a glucose of 184. Patient likely has known hypoglycemic DKA in the setting of SGLT2 inhibitor use.
Influenza bronchitis
Euglycemic DKA in the settings of SGLT2 inhibitor
Atypical chest pain
Other conditions
IDDM type II
Dyslipidemia
Hypertension
Hypothyroidism
Obesity with BMI of 31
Plan
# New onset A fib
No palpitation. No prior history
s/p IV Cardizem drip
[id number] around 3. Started on Eliquis
Started on oral BB , increase dose to better control HR
Echo 08/11 showed LVEF 50% , mild reduction than prior echo in 2022, No significant valvular heart disease.
Appreciate cardiology help
#CAP with Influenza A. Report symptoms for 2 days prior to presentation.
Improvement in pleuritic chest pain
started on IV Abx with
Procalcitonin is elevated
Finish course of Tamiflu.
Mucolytic's
Appreciate pulmonary help
# Acute DKA
metabolic acidosis
Improved, will change to SQ insulin,s top IVF & Insulin gtt
# Essential Hypertension
Hyponatremia
No confusion
# Hyperkalemia
resolved
Hyperlipidemia
- Continue atorvastatin
Anxiety/Depression
- Continue Lexapro
Hypothyroidism
- Continue Synthroid
DVT ppx: Lovenox
Total time spent to see the patient, examine the patient, review data and lab results, discuss treatment plan with patient, nursing staff around 57 minutes
Anticipated Discharge: > 48 hours
Subjective/Interval History
-
Date of Service: August 12, 2025
He feels much better
He wants to eat
No chest pain
Objective Data
-
Labs:
Laboratory Results
08/11/25 08/12/25
22:59 03:06
WBC 26.9 H
Hgb 13.0
Hct 37.1 L
Plt Count 242
Sodium 130 L 131 L
Potassium 4.2 4.5
Chloride 104 103
Carbon Dioxide 18 L 19 L
BUN 20 19
Creatinine 0.8 0.7
Glucose 247 H 212 H
Calcium 8.0 L 8.1 L
Vital Signs:
Vital Signs
Temp Pulse Resp BP Pulse Ox
98.2 F 91 35 142/78 96
08/12/25 07:37 08/12/25 08:30 08/12/25 08:30 08/12/25 08:30 08/12/25 09:12
I&O
08/11/25 08/12/25 08/13/25
06:59 06:59 06:59
Intake Total 2247 / 2415 3899 / 4052 756 / 756
Output Total 2620 / 2620 1575 / 1575 400 / 400
Balance -373 / -205 2324 / 2477 356 / 356
--- NOTE | 2025-08-12 11:39 | W.PN.CARDCBS ---
Today's Communication / Plan
-
Spontaneously converted to sinus rhythm
Would continue metoprolol and Eliquis
Impression / Plan
-
Primary Science Instructor: Dr. Paiz, last seen in 2020
Assessment:
Presentation with fevers/chills/body aches
Influenza A
DKA
CP with negative troponins, suspected noncardiac
Hyponatremia
HTN
HLD
IDDM
Hypothyroidism
Anxiety
Long covid
ECHO 07/07/23: EF 60 to 65%, aortic sclerosis, trace AR
Plan:
- Patient presented with symptoms of fevers, chills, body aches and tested positive for influenza A. Also with DKA.
- Episode of AFib RVR 08/10-08/12 requiring diltiazem gtt. Spontaneously converted and currently in sinus rhythm.
- Continue metoprolol
- [id number] score of 3 for age, DM, HTN. Recommend OAC with Eliquis 5mg BID.
- Echo here with low normal LV function but study was technically difficult. Would consider reassessing as an outpatient.
- Continue supportive care of flu. on IVF and tamiflu.
Progress Note - Science Instructor
Subjective
Date of Service: August 12, 2025
Spontaneously converted from A-fib to sinus rhythm earlier today. Patient is resting comfortably in medical ICU out of bed to chair. Tells me that his pleuritic type chest pain is significantly improved today.
Objective
Labs:
08/12/25 03:06
08/12/25 03:06
Labs
Hgb 13.0 g/dL (13.0-18.0) 08/12/25 03:06
Hct 37.1 % (39.0-52.0) L 08/12/25 03:06
Plt Count 242 10^3/uL (130-400) 08/12/25 03:06
PT 16.3 Sec (11.4-14.6) H 08/09/25 20:23
INR 1.34 08/09/25 20:23
APTT 45.9 Sec (23.4-35.0) H 08/09/25 20:23
Sodium 131 mmol/L (135-145) L 08/12/25 03:06
Potassium 4.5 mmol/L (3.5-5.1) 08/12/25 03:06
BUN 19 mg/dl (9-20) 08/12/25 03:06
Creatinine 0.7 mg/dL (0.7-1.3) 08/12/25 03:06
Glucose 212 mg/dl (70-99) H 08/12/25 03:06
Troponins
08/09/25 08/09/25
11:54 20:23
Troponin I < 0.012 < 0.012
Vital Signs and I&O:
Vital Signs
Temp Pulse Resp BP Pulse Ox
98.2 F 93 28 125/89 94
08/12/25 11:34 08/12/25 10:30 08/12/25 10:00 08/12/25 10:30 08/12/25 10:30
Vital Signs
Temp Pulse Resp BP Pulse Ox
98.2 F 93 28 125/89 94
08/12/25 11:34 08/12/25 10:30 08/12/25 10:00 08/12/25 10:30 08/12/25 10:30
Intake & Output
08/10/25 08/11/25 08/12/25 08/13/25
06:59 06:59 06:59 06:59
Intake Total 5107 / 5259 2247 / 2415 3899 / 4052 756 / 756
Output Total 1550 / 1550 2620 / 2620 1575 / 1575 400 / 400
Balance 3557 / 3709 -373 / -205 2324 / 2477 356 / 356
Physical Exam
Physical Exam
Gen: NAD, AAOx3, OOB to chair
HEENT: NC/AT, sclera anicteric
Neck: No JVD
CV: RRR, NL s1/s2, no M/R/G
Lungs: Scattered rhonchi on 15 L O2
Abd: S/ND
Ext: No LE edema
Skin: Warm, dry
Neuro: Non-focal
[2025-08-12] MEDS: STERILE WATER FOR INJECTION 10 ML IV (11:44)
[2025-08-12] MEDS: ROCEPHIN 1000 MG IV (11:45)
[2025-08-12 13:20] LABS: Glucose - Point of Care 259 mg/dl (70-99)
[2025-08-12] MEDS: NOVOLOG FLEXPEN-HIGH RESISTANCE SC (13:49)
[2025-08-12] MEDS: NOVOLOG FLEXPEN 4 UNITS SC (13:56)
--- NOTE | 2025-08-12 17:09 | PTCARENOTE ---
Patient is now on room air, 93%. Will spot check oxygen saturation. patient is written for tele. ambulating independently in room
[2025-08-12 17:10] LABS: Glucose - Point of Care 222 mg/dl (70-99)
[2025-08-12] MEDS: NOVOLOG FLEXPEN-HIGH RESISTANCE 4 UNITS SC (17:12)
[2025-08-12] MEDS: SENOKOT-S PO (20:49)
[2025-08-12 21:06] LABS: Glucose - Point of Care 231 mg/dl (70-99)
[2025-08-12] MEDS: MELATONIN 5 MG PO (21:10)
[2025-08-13] VITALS (9 sets, daily range): BP systolic 112–142; BP diastolic 63–105; PULSE 91; BMI 32.1
--- NOTE | 2025-08-13 03:55 | PTCARENOTE ---
Assumed care at 1900. Sinus tach on the monitor. Satting 88 percent on room air- 2 liters NC placed. See worklist for nursing shift assessment details.
[2025-08-13 04:16] LABS: Hematocrit 36.8 % (39.0-52.0); Hemoglobin 12.9 g/dL (13.0-18.0); Mean Corp Hgb Conc. 35.1 g/dL (33.0-37.0); Mean Corpuscular Volume 80.2 fL (80.0-94.0); Platelet Count 239 10^3/uL (130-400); Red Cell Dist. Width 15.9 % (11.5-14.5)
[2025-08-13] MEDS: SYNTHROID 75 MCG PO (04:28)
[2025-08-13 04:40] LABS: ALT (SGPT) 27 U/L (0-50); AST (SGOT) 39 U/L (17-59); Albumin 2.8 g/dl (3.5-5.0); Alkaline Phosphatase 281 U/L (38-126); Blood Urea Nitrogen 18 mg/dl (9-20); Calcium 7.8 mg/dl (8.4-10.2); Carbon Dioxide 13 mmol/L (22-30); Chloride 104 mmol/L (98-107); Estimated Creatinine Clearance > 125 ml/min; Glucose 226 mg/dl (70-99); Potassium 4.6 mmol/L (3.5-5.1); Sodium 130 mmol/L (135-145); Total Protein 6.0 g/dl (6.3-8.2); eGFR > 60.00
--- NOTE | 2025-08-13 06:07 | PTCARENOTE ---
Patient with critical co2 of 13. dredge captain provider made aware. Hospitalist to come up with decision on treatment.
[2025-08-13 07:56] LABS: Glucose - Point of Care 220 mg/dl (70-99)
--- NOTE | 2025-08-13 08:00 | PTCARENOTE ---
Assumed care of patient. Assessment completed. Left base diminished. IS encouraged...250mls. Encouraged to cough and deep breath. 2 view CXR completed. Breakfast ordered. Ambulates in room on tele pack by self. Steady gait. Continent. Call
garcia within reach. Safe environment confirmed.
[2025-08-13] MEDS: LIPITOR 10 MG PO (08:42)
[2025-08-13] MEDS: LOPRESSOR 50 MG PO ×2 (08:42→21:51)
[2025-08-13] MEDS: VIBRAMYCIN 100 MG PO ×2 (08:42→21:45)
[2025-08-13] MEDS: ELIQUIS 5 MG PO ×2 (08:42→21:44)
[2025-08-13] MEDS: TAMIFLU 75 MG PO ×2 (08:42→21:45)
[2025-08-13] MEDS: LEXAPRO 20 MG PO (08:42)
[2025-08-13] MEDS: ROCEPHIN 2000 MG IV (08:43)
[2025-08-13] MEDS: LIDOCAINE 4% PATCH 1 PATCH TOPICAL (08:43)
[2025-08-13] MEDS: STERILE WATER FOR INJECTION 20 ML IV (08:44)
[2025-08-13] MEDS: NOVOLOG FLEXPEN-HIGH RESISTANCE 4 UNITS SC ×3 (08:54→17:00)
[2025-08-13] MEDS: LANTUS 0.2 UNITS SC (08:55)
[2025-08-13] MEDS: NOVOLOG FLEXPEN 5 UNITS SC ×2 (08:55→17:00)
--- NOTE | 2025-08-13 09:12 | W.PN.HOSP.TC ---
Today's Communication/Plan
-
.
Assessment / Plan
Assessment / Plan
Physical Exam
General: Comfortable and Conversant
HEENT: Normocephalic and Anicteric
Respiratory: limited with some rales
Cardiac: S1/S2 and Regular Rhythm
GI: Soft, Non Tender and Non Distended
Musculoskeletal: No Clubbing, No Cyanosis
Skin: Warm and Dry
Neuro: Awake, Alert, Oriented and Nonfocal/grossly intact
Psych, calm
Impression:
65year-old with past medical history significant for insulin-dependent diabetes who presents to the emergency department with flulike symptoms. Diagnosed with influenza. Patient has had approximately 2 days of symptoms. He is now having nausea
and vomiting and is dehydrated. Clinical picture shows acidemia, no lactic acidosis, anion gap of 24 with a glucose of 184. Patient likely has known hypoglycemic DKA in the setting of SGLT2 inhibitor use.
Influenza bronchitis
Acute hypoxic respiratory failure, was mid flow, now weaning down to RA
Euglycemic DKA in the settings of SGLT2 inhibitor
Atypical chest pain
Other conditions
IDDM type II
Dyslipidemia
Hypertension
Hypothyroidism
Obesity with BMI of 31
Plan
# New onset A fib
No palpitation. No prior history
s/p IV Cardizem drip
[id number] around 3. Started on Eliquis
Started on oral BB , increased dose to better control HR
Echo 08/11 showed LVEF 50% , mild reduction than prior echo in 2022, No significant valvular heart disease.
Appreciate cardiology help
#CAP with Influenza A. Report symptoms for 2 days prior to presentation.
Hypoxia, resolved, no on RA
WBC continues to trend down
Improvement in pleuritic chest pain
started on IV Abx with
MRSA screen is negative
Change IV Rocephin to 2 gm.
Procalcitonin was elevated
Finish course of Tamiflu.
Mucolytic's
Repeat chest x ray 08/13 Improved loculated left pleural effusion.
Appreciate pulmonary help
# Acute DKA
metabolic acidosis
poorly controlled DM< HGB A1C 8.7
He continues to have metabolic acidosis, will adjust insulin for tight control. Add Pre-meal insulin, c/w Lantus BID, c/w iSS
S/P Insulin gtt for two trials.
# Essential Hypertension
Started on BB
Resume Ramipril
Hyponatremia
No confusion
# Hyperkalemia
resolved
Hyperlipidemia
- Continue atorvastatin
Anxiety/Depression
- Continue Lexapro
Hypothyroidism
- Continue Synthroid
DVT ppx: Eliquis
Total time spent to see the patient, examine the patient, review data and lab results, discuss treatment plan with patient, nursing staff around 57 minutes
Anticipated Discharge: > 48 hours
Subjective/Interval History
-
Date of Service: August 13, 2025
He feels better, less sob/cough
No abdominal pain, no nausea
Objective Data
-
Labs:
Laboratory Results
08/13/25
03:37
WBC 19.5 H
Hgb 12.9 L
Hct 36.8 L
Plt Count 239
Sodium 130 L
Potassium 4.6
Chloride 104
Carbon Dioxide 13 L*
BUN 18
Creatinine 0.7
Glucose 226 H
Calcium 7.8 L
Total Bilirubin 0.7
AST 39
ALT 27
Alkaline Phosphatase 281 H
Vital Signs:
Vital Signs
Temp Pulse Resp BP Pulse Ox
98.2 F 93 28 140/92 95
08/13/25 07:33 08/13/25 08:42 08/12/25 10:00 08/13/25 08:42 08/13/25 06:00
I&O
08/12/25 08/13/25 08/14/25
06:59 06:59 06:59
Intake Total 3899 / 4052 1236 / 1236
Output Total 1575 / 1575 400 / 400
Balance 2324 / 2477 836 / 836
[2025-08-13] MEDS: ALTACE 5 MG PO (10:44)
--- NOTE | 2025-08-13 11:01 | W.PN.PUL3 ---
Today's Communication / Plan
-
Continue antibiotics
Incentive spirometry
Monitor for fevers and leukocytosis
Left chest ultrasound on Thursday
Pulmonary will follow
Assessment
-
Mr. Duran is a 65-year-old male with a history of insulin-dependent diabetes, hypothyroid, hypertension, hyperlipidemia, anxiety, GERD, long COVID who presented with generalized aches and malaise for 2-3 days. He reports having fevers and chills as
well as cough and pleuritic chest pain with decreasing appetite increasing nausea and episode of vomiting. Labs suggestive of euglycemic DKA and influenza A.
DKA recurred-back on insulin drip 08/11/2025.
Also developed rapid atrial fibrillation.
Back on ICU level of care.
Pulmonary following for hypoxemia and pneumonia.08/13/2025
Left lower lobe pneumonia-likely bacterial/influenza A on admission as well.

Influenza A: Complete 5 days of Tamiflu-also left lower lobe pneumonia likely bacterial.
Elevated procalcitonin.
CT chest 08/10/2025: No pulmonary embolism. Small left pleural effusion. Large left lower lobe infiltrate likely bacterial pneumonia.
Ceftriaxone/doxycycline started 08/10/2025-seems to be responding. Leukocytosis decreasing. Afebrile.
Negative Legionella and strep pneumo antibody
Sputum culture-poor sample.
Leukocytosis noted-he remains afebrile.
Chest x-ray 08/13/2025: Improvement on loculated left pleural effusion.
Will obtain left-sided ultrasound on Thursday
-
Hypoxemia resolved.
On room air 08/13/2025
Encourage incentive spirometer
Increase activity as able per
-
Left-sided pleuritic type chest pain. Due to pneumonia-pleuritic type chest pain/pleurisy.
No DVT or pulmonary embolism.
Possibly related to infection
Improved. Continue analgesia as needed.
Lower extremity Dopplers negative
-
Euglycemic DKA--likely in the setting of influenza A/Connor and Joanie.
History of type 2 diabetes on insulin
home insulin Lantus 20 units subcu twice a day
Insulin drip discontinued 08/12/2025
Restarted her home Lantus 20 units twice a day and prandial coverage per
Defer management to primary team.
-
Electrolytes are balanced
Denies nausea or vomiting-tolerating diet.
Normal renal function
Eventual diabetes nurse practitioner consultation
Hold Mounjaro and Jardiance for now
-
Rapid atrial fibrillation: Cardiology has been consulted-correspondence reviewed.
Cardizem drip has been discontinued
Continue [id number]-yptfwhx as able.
Echocardiogram 08/11/2025: LVEF 50%. Normal right ventricular size and function. No significant valvular abnormality.
Troponins were negative
Anticoagulation-per cardiology
--
Physical therapy/Occupational Therapy as tolerated
-
Antiemetics: Zofran
GI PPx: Protonix 40 mg daily
DVT PPx: Lovenox
-
Pulmonary will continue to follow for pneumonia and parapneumonic effusion
Subjective Data
-
Date of Service:
Date of Service: August 13, 2025
Chief Complaint: Pulmonary Follow Up (Pneumonia/influenza)
Subjective:
Patient feels improved
Pleuritic type chest pain is minimal
Denies significant phlegm production
Denies significant shortness of breath
Review of Systems
Cardiopulmonary: Dyspnea (Improved) and Chest Pain (Improved)
Objective Data
Data Reviewed
Vital Signs / I&O / Oxygen:
Vital Signs
Temp Pulse Resp BP Pulse Ox
98.2 F 85 28 112/87 96
08/13/25 07:33 08/13/25 10:44 08/12/25 10:00 08/13/25 10:44 08/13/25 08:00
Intake and Output
08/12/25 08/13/25 08/14/25
06:59 06:59 06:59
Intake Total 3899 / 4052 1236 / 1236 480 / 480
Output Total 1575 / 1575 400 / 400
Balance 2324 / 2477 836 / 836 480 / 480
SaO2 96
Nasal Cannula flow liters per 5
minute
Physical Exam
General: Comfortable
HEENT: Normocephalic
Cardiovascular: S1-S2
Respiratory: Clear and Other (Decreased breath sounds left base)
GI: Soft and Non Distended
Neurology: Awake and Alert
Skin: Warm
Labs/Micro/Reports
Lab Data
08/13/25 03:37
08/13/25 03:37
Microbiology
08/10/25 13:49 Nose MRSA Screen - Final
No Methicillin Resistant Staphylococcus aureus isolated.
08/11/25 08:58 Sputum Respiratory Culture - Final
08/11/25 08:58 Sputum Gram Stain - Final
08/11/25 00:09 Urine Legionella Urinary Antigen - Final
Negative for Legionella pneumophila Serogroup 1 antigen.
A negative result does not rule out the possiblity of
Legionella infection due to other serogroups or species of
Legionella. Clinical correlation is recommended.
08/11/25 00:09 Urine Streptococcus pneumoniae Antigen (M - Final
Negative for Streptococcus pneumoniae antigen.
A negative result does not exclude infection with
Streptococcus pneumoniae. Clinical correlation is
recommended.
--- NOTE | 2025-08-13 11:45 | CM ---
Chart reviewed , pt remains on IV antibiotics and oxygen.
CM will continue to follow for all discharge planning needs.
[2025-08-13 12:42] LABS: Glucose - Point of Care 243 mg/dl (70-99)
[2025-08-13] MEDS: NOVOLOG FLEXPEN SC (12:57)
--- NOTE | 2025-08-13 13:56 | W.PN.CARDCBS ---
Today's Communication / Plan
-
Maintaining sinus rhythm. Would continue Eliquis 5 mg twice daily on discharge for risk reduction of cardioembolic stroke.
Stable cardiac status. We will sign off. Outpatient follow-up to be arranged.
Impression / Plan
-
Primary Machine Shop Inspector: Dr. Paiz, last seen in 2020
Assessment:
Presentation with fevers/chills/body aches
Influenza A
DKA
CP with negative troponins, suspected noncardiac
Hyponatremia
HTN
HLD
IDDM
Hypothyroidism
Anxiety
Long covid
ECHO 07/07/23: EF 60 to 65%, aortic sclerosis, trace AR
Plan:
- Patient presented with symptoms of fevers, chills, body aches and tested positive for influenza A. Also with DKA.
- Episode of AFib RVR 08/10-08/12 requiring diltiazem gtt. Spontaneously converted and currently in sinus rhythm.
- Continue metoprolol
- [id number] score of 3 for age, DM, HTN. Recommend OAC with Eliquis 5mg BID.
- Echo here with low normal LV function but study was technically difficult. Could consider reassessing as an outpatient.
- Continue supportive care of flu. on IVF and tamiflu.
Stable cardiac status. We will sign off and arrange outpatient follow-up.
Recommend continuing Eliquis 5 mg twice daily on discharge
Progress Note - Machine Shop Inspector
Subjective
Date of Service: August 13, 2025
No acute overnight events. Patient remains in the medical ICU but has been weaned off of oxygen. Overall tells me he feels significantly better. Maintaining sinus rhythm on review of telemetry.
Objective
Labs:
08/13/25 03:37
08/13/25 03:37
Labs
Hgb 12.9 g/dL (13.0-18.0) L 08/13/25 03:37
Hct 36.8 % (39.0-52.0) L 08/13/25 03:37
Plt Count 239 10^3/uL (130-400) 08/13/25 03:37
PT 16.3 Sec (11.4-14.6) H 08/09/25 20:23
INR 1.34 08/09/25 20:23
APTT 45.9 Sec (23.4-35.0) H 08/09/25 20:23
Sodium 130 mmol/L (135-145) L 08/13/25 03:37
Potassium 4.6 mmol/L (3.5-5.1) 08/13/25 03:37
BUN 18 mg/dl (9-20) 08/13/25 03:37
Creatinine 0.7 mg/dL (0.7-1.3) 08/13/25 03:37
Glucose 226 mg/dl (70-99) H 08/13/25 03:37
Vital Signs and I&O:
Vital Signs
Temp Pulse Resp BP Pulse Ox
98.8 F 85 28 112/87 96
08/13/25 11:20 08/13/25 10:44 08/12/25 10:00 08/13/25 10:44 08/13/25 08:00
Vital Signs
Temp Pulse Resp BP Pulse Ox
98.8 F 85 28 112/87 96
08/13/25 11:20 08/13/25 10:44 08/12/25 10:00 08/13/25 10:44 08/13/25 08:00
Intake & Output
08/11/25 08/12/25 08/13/25 08/14/25
06:59 06:59 06:59 06:59
Intake Total 2247 / 2415 3899 / 4052 1236 / 1236 480 / 480
Output Total 2620 / 2620 1575 / 1575 400 / 400
Balance -373 / -205 2324 / 2477 836 / 836 480 / 480
Physical Exam
Physical Exam
Gen: NAD, AAOx3
HEENT: NC/AT, sclera anicteric
Neck: No JVD
CV: RRR, NL s1/s2, no M/R/G
Lungs: Scattered rhonchi on room air
Abd: S/ND
Ext: No LE edema
Skin: Warm, dry
Neuro: Non-focal
--- NOTE | 2025-08-13 15:07 | PTCARENOTE ---
Report called to 2nd floor. Pt to transfer to Room 2131.
[2025-08-13] MEDS: ROXICODONE 5 MG PO (15:41)
[2025-08-13] MEDS: TORADOL 15 MG IV (16:55)
[2025-08-13 17:01] LABS: Glucose - Point of Care 229 mg/dl (70-99)
[2025-08-13 21:38] LABS: Glucose - Point of Care 358 mg/dl (70-99)
[2025-08-13] MEDS: SENOKOT-S 2 TABLET PO (21:44)
[2025-08-13] MEDS: LANTUS 0.25 UNITS SC (21:49)
[2025-08-14] MEDS: ROXICODONE 5 MG PO ×2 (02:19→21:40)
[2025-08-14] MEDS: MELATONIN 5 MG PO (02:41)
[2025-08-14 03:00] VITALS: BP 134/90
[2025-08-14] MEDS: SYNTHROID 75 MCG PO (05:26)
[2025-08-14] MEDS: TORADOL 15 MG IV ×2 (06:48→16:42)
[2025-08-14 07:58] VITALS: BP 112/72
[2025-08-14 08:06] LABS: Glucose - Point of Care 267 mg/dl (70-99)
[2025-08-14] MEDS: LIDOCAINE 4% PATCH 1 PATCH TOPICAL (08:06)
[2025-08-14] MEDS: NOVOLOG FLEXPEN 5 UNITS SC (08:08)
[2025-08-14] MEDS: NOVOLOG FLEXPEN-HIGH RESISTANCE 7 UNITS SC (08:08)
[2025-08-14] MEDS: ALTACE 5 MG PO (08:09)
[2025-08-14] MEDS: TAMIFLU 75 MG PO (08:10)
[2025-08-14] MEDS: ELIQUIS 5 MG PO ×2 (08:10→21:40)
[2025-08-14] MEDS: LOPRESSOR 50 MG PO ×2 (08:10→21:33)
[2025-08-14] MEDS: LEXAPRO 20 MG PO (08:10)
[2025-08-14] MEDS: LIPITOR 10 MG PO (08:10)
[2025-08-14] MEDS: VIBRAMYCIN 100 MG PO ×2 (08:10→21:27)
[2025-08-14] MEDS: LANTUS 0.25 UNITS SC ×2 (08:11→21:42)
[2025-08-14] MEDS: ROCEPHIN 2000 MG IV (08:11)
[2025-08-14] MEDS: STERILE WATER FOR INJECTION 20 ML IV (08:11)
--- NOTE | 2025-08-14 08:27 | PN.DE.MGMTRT ---
Insulin Management
- -
08/14/2025: Diabetes Management Consult
65 year old male with PMH: HTN, Hypothyroidism, Dyslipidemia and IDDM, who presented to the ED with flulike symptoms associated with generalized aches, malaise, nausea, vomiting and dehydration and was diagnosed with influenza. He was noted for
euglycemic DKA with a glucose of 184 and anion gap of 24 in the setting of SGLT2 inhibitor use. He was managed in the ICU on insulin infusion.
Pt awake, alert, oriented, resting in bed, states he still feels tired mainly due to lack of sleep while in the hospital. at bedside, both able to discuss diabetes care plan. Pt states he was taking Lantus 20 units BID, Jardiance 25mg daily and
Mounjaro 10 mg Q Thursday. He routinely sees Endo Dr. Mckeon and uses a CGM- Dexcom for glucose monitoring at home. A1C 8.7%, Cr 0.7, eGFR >60
Current diabetes regimen includes, Lantus 25 units BID, NovoLog 5 units AC and high corrective insulin with meals
His glucose has remained elevated. Yesterday premeal glucose was 220 to 243, trended up to 358 @ HS. Fasting 310 V, 267 POC
Will increase AC NovoLog to 10 units and change corrective from high to low corrective with meals. Change diet from 2200 arash to 2000 arash diet
Cont Lantus 25 units BID. Will closely monitor glucose trend and adjust insulin dose if necessary.
Will not resume SGLT2 at this time.
Discussed with Nurse, patient and .
Diabetes History
- -
Type of Diabetes: 2 requiring insulin
Pre-Admission Diabetes Regimen
Lab Results
Hemoglobin A1c 8.7 % (4.0-5.9) H 08/09/25 03:26
Insulin Pump Settings
IP Diabetes Regimen
08/13/25 08/13/25 08/13/25
12:40 16:59 21:37
POC Glucose 243 H 229 H 358 H
08/14/25
08:05
POC Glucose 267 H
Meal type: Dinner
Meal type: Lunch
Meal type: Breakfast
Amount consumed: 100%
Amount consumed: Patient refused
Amount consumed: 100%
Patient Education
[2025-08-14 08:55] LABS: Blood Urea Nitrogen 16 mg/dl (9-20); Calcium 7.5 mg/dl (8.4-10.2); Carbon Dioxide 19 mmol/L (22-30); Chloride 105 mmol/L (98-107); Estimated Creatinine Clearance > 125 ml/min; Glucose 310 mg/dl (70-99); Potassium 4.3 mmol/L (3.5-5.1); Sodium 131 mmol/L (135-145); eGFR > 60.00
[2025-08-14 09:04] LABS: Hematocrit 40.4 % (39.0-52.0); Hemoglobin 14.3 g/dL (13.0-18.0); Mean Corp Hgb Conc. 35.4 g/dL (33.0-37.0); Mean Corpuscular Volume 79.8 fL (80.0-94.0); Platelet Count 310 10^3/uL (130-400); Red Cell Dist. Width 15.9 % (11.5-14.5)
--- NOTE | 2025-08-14 09:10 | W.PN.PUL3 ---
Today's Communication / Plan
-
Continue antibiotics
Incentive spirometry
Recommend thoracentesis of left-sided loculated pleural effusion and send off for usual fluid studies including cell count with differential, cultures and cytopathology
Monitor for fevers and leukocytosis
Pulmonary will follow
Assessment
-
Mr. Duran is a 65-year-old male with a history of insulin-dependent diabetes, hypothyroid, hypertension, hyperlipidemia, anxiety, GERD, long COVID who presented with generalized aches and malaise for 2-3 days. He reports having fevers and chills as
well as cough and pleuritic chest pain with decreasing appetite increasing nausea and episode of vomiting. Labs suggestive of euglycemic DKA and influenza A.
DKA recurred-back on insulin drip 08/11/2025.
Also developed rapid atrial fibrillation.
Back on ICU level of care.
Pulmonary following for hypoxemia and pneumonia.08/13/2025
Left lower lobe pneumonia-likely bacterial/influenza A on admission as well.

Influenza A: Complete 5 days of Tamiflu-also left lower lobe pneumonia likely bacterial.
Elevated procalcitonin.
CT chest 08/10/2025: No pulmonary embolism. Small left pleural effusion. Large left lower lobe infiltrate likely bacterial pneumonia.
Ceftriaxone/doxycycline started 08/10/2025-seems to be responding. Leukocytosis decreasing. Afebrile.
Negative Legionella and strep pneumo antibody
Sputum culture-poor sample.
Leukocytosis noted-he remains afebrile.
Chest x-ray 08/13/2025: Improvement on loculated left pleural effusion.
Left-sided ultrasound performed today showing a moderate loculated left-sided pleural effusion and trace right-sided effusion
- Given the loculated appearance, recommend thoracentesis with fluid sent for cell count with differential, glucose, protein, LDH, pH, cultures and cytopathology
-
Hypoxemia resolved.
On room air 08/13/2025
Encourage incentive spirometer
Increase activity as able per
-
Left-sided pleuritic type chest pain. Due to pneumonia-pleuritic type chest pain/pleurisy.
No DVT or pulmonary embolism.
Possibly related to infection
Improved. Continue analgesia as needed.
Lower extremity Dopplers negative
-
Euglycemic DKA--likely in the setting of influenza A/Mounjaro and Jardiance.
History of type 2 diabetes on insulin
home insulin Lantus 20 units subcu twice a day
Insulin drip discontinued 08/12/2025
Restarted her home Lantus 20 units twice a day and prandial coverage per
Defer management to primary team.
-
Electrolytes are balanced
Denies nausea or vomiting-tolerating diet.
Normal renal function
Eventual diabetes nurse practitioner consultation
Hold Mounjaro and Jardiance for now
-
Rapid atrial fibrillation: Cardiology has been consulted-correspondence reviewed.
Cardizem drip has been discontinued
Continue iwzd-ihlclow-zvyibtf as able.
Echocardiogram 08/11/2025: LVEF 50%. Normal right ventricular size and function. No significant valvular abnormality.
Troponins were negative
Anticoagulation-per cardiology
--
Physical therapy/Occupational Therapy as tolerated
-
Antiemetics: Zofran
GI PPx: Protonix 40 mg daily
DVT PPx: Eliquis
-
Pulmonary will continue to follow for pneumonia and parapneumonic effusion
Subjective Data
-
Date of Service:
Date of Service: August 14, 2025
Chief Complaint: Pulmonary Follow Up (Pneumonia/influenza)
Subjective:
Patient seen today at bedside. Afebrile overnight. Saturating 95% on room air.
Review of Systems
General: Other (Negative unless mentioned above)
Objective Data
Data Reviewed
Vital Signs / I&O / Oxygen:
Vital Signs
Temp Pulse Resp BP Pulse Ox
98.2 F 80 16 112/72 92
08/14/25 07:58 08/14/25 08:10 08/14/25 07:58 08/14/25 08:10 08/14/25 07:58
Intake and Output
08/13/25 08/14/25 08/15/25
06:59 06:59 06:59
Intake Total 1236 / 1236 1200 / 1200
Output Total 400 / 400
Balance 836 / 836 1200 / 1200
SaO2 92
Nasal Cannula flow liters per 5
minute
Physical Exam
General: Comfortable
HEENT: Normocephalic
Cardiovascular: S1-S2
Respiratory: Clear and Other (Decreased breath sounds left base)
GI: Soft and Non Distended
Neurology: Awake and Alert
Skin: Warm
Labs/Micro/Reports
Lab Data
08/14/25 08:11
08/14/25 08:11
Microbiology
08/10/25 13:49 Nose MRSA Screen - Final
No Methicillin Resistant Staphylococcus aureus isolated.
08/11/25 08:58 Sputum Respiratory Culture - Final
08/11/25 08:58 Sputum Gram Stain - Final
08/11/25 00:09 Urine Legionella Urinary Antigen - Final
Negative for Legionella pneumophila Serogroup 1 antigen.
A negative result does not rule out the possiblity of
Legionella infection due to other serogroups or species of
Legionella. Clinical correlation is recommended.
08/11/25 00:09 Urine Streptococcus pneumoniae Antigen (M - Final
Negative for Streptococcus pneumoniae antigen.
A negative result does not exclude infection with
Streptococcus pneumoniae. Clinical correlation is
recommended.
[2025-08-14 11:37] VITALS: BP 112/77
[2025-08-14 12:46] LABS: Glucose - Point of Care 286 mg/dl (70-99)
[2025-08-14] MEDS: NOVOLOG FLEXPEN 10 UNITS SC ×2 (12:50→17:39)
[2025-08-14] MEDS: NOVOLOG FLEXPEN-LOW RESISTANCE 3 UNITS SC ×2 (12:51→17:40)
--- NOTE | 2025-08-14 13:16 | W.PN.HOSP.TC ---
Today's Communication/Plan
-
Cont abx
Ultrasound - for possible thoracentesis
BB, Eliquis
Diabetic management
Assessment / Plan
Assessment / Plan
Physical Exam
General: Comfortable and Conversant
HEENT: Normocephalic and Anicteric
Respiratory: limited with some rales
Cardiac: S1/S2 and Regular Rhythm
GI: Soft, Non Tender and Non Distended
Musculoskeletal: No Clubbing, No Cyanosis
Skin: Warm and Dry
Neuro: Awake, Alert, Oriented and Nonfocal/grossly intact
Psych, calm
Impression:
65year-old with past medical history significant for insulin-dependent diabetes who presents to the emergency department with flulike symptoms. Diagnosed with influenza. Patient has had approximately 2 days of symptoms. He is now having nausea
and vomiting and is dehydrated. Clinical picture shows acidemia, no lactic acidosis, anion gap of 24 with a glucose of 184. Patient likely has known hypoglycemic DKA in the setting of SGLT2 inhibitor use.
Influenza bronchitis
Acute hypoxic respiratory failure, was mid flow, now weaning down to RA
Euglycemic DKA in the settings of SGLT2 inhibitor
Atypical chest pain
Other conditions
IDDM type II
Dyslipidemia
Hypertension
Hypothyroidism
Obesity with BMI of 31
Plan
# New onset A fib
No palpitation. No prior history
s/p IV Cardizem drip
[id number] around 3. Started on Eliquis
Started on oral BB , increased dose to better control HR
Echo 08/11 showed LVEF 50% , mild reduction than prior echo in 2022, No significant valvular heart disease.
F/u Cards outpt
#CAP with Influenza A. Report symptoms for 2 days prior to presentation.
#Sepsis with source and endorgan damage with hypoxia
#Likely parapneumonic effusion
#Hypoxia, resolved, no on RA
WBC continues to trend down
Improvement in pleuritic chest pain
started on IV Abx
Procalcitonin was elevated
Finish course of Tamiflu.
Mucolytic's
Left Chest US to assess for diagnostic +/- therapeutic thora
Pulm on board
# Euglycemic DKA
metabolic acidosis
poorly controlled DM< HGB A1C 8.7
He continues to have metabolic acidosis, will adjust insulin for tight control. Add Pre-meal insulin, c/w Lantus BID, c/w iSS
S/P Insulin gtt for two trials.
-DM PATTERN CHECKER consulted
# Essential Hypertension
Started on BB
Resume Ramipril
Hyponatremia
No confusion
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
Continue to monitor
Free water restriction
# Hyperkalemia
resolved
Hyperlipidemia
- Continue atorvastatin
Anxiety/Depression
- Continue Lexapro
Hypothyroidism
- Continue Synthroid
DVT ppx: Eliquis
Total time spent on today's encounter was 52 minutes which included time spent in counseling the patient/family regarding diagnosis and treatment plan as listed above, goals of care, and symptom management. Case was discussed with nursing staff,
specialists, and care coordinators/case management. All labs and imaging personally reviewed by me. Remainder the time spent in detailed review of previous records, lab data, imaging, and other medical provider documentation.
Anticipated Discharge: > 48 hours
Subjective/Interval History
-
Date of Service: August 14, 2025
sitting in bed, resting comfortably off o2.
Objective Data
-
Labs:
Laboratory Results
08/14/25
08:11
WBC 19.1 H
Hgb 14.3
Hct 40.4
Plt Count 310 D
Sodium 131 L
Potassium 4.3
Chloride 105
Carbon Dioxide 19 L
BUN 16
Creatinine 0.7
Glucose 310 H
Calcium 7.5 L
Vital Signs:
Vital Signs
Temp Pulse Resp BP Pulse Ox
97.4 F 76 18 112/77 95
08/14/25 11:37 08/14/25 11:37 08/14/25 11:37 08/14/25 11:37 08/14/25 12:00
I&O
08/13/25 08/14/25 08/15/25
06:59 06:59 06:59
Intake Total 1236 / 1236 1200 / 1200
Output Total 400 / 400
Balance 836 / 836 1200 / 1200
Review of Systems
-
History Source: Patient
All other systems: Not reviewed unless documented
Physical Exam
-
General: Well Developed and No Apparent Distress
HEENT: Normocephalic, Atraumatic and Moist Mucous Membranes
Respiratory: Clear to Auscultation
Cardiac: Regular Rhythm and S1/S2; Negative Murmur, Rub or Gallop
GI: Soft, Nontender, Nondistended and Normal Bowel Sounds; Negative Organomegaly
Rectal: Deferred by Provider
Musculoskeletal: No Clubbing, No Cyanosis and No Edema
Skin: Negative Rash
Neuro: Nonfocal/Grossly Intact
Data Reviewed
-
Diagnostic Radiology: Report Reviewed by me
CT Scan: Report Reviewed by me
Ultrasound: Report Reviewed by me
Labs: Labs Reviewed by me
--- NOTE | 2025-08-14 16:05 | CM ---
CM reviewed chart- ADC>48 hours
Pt admitted with flu+, on abx
Per PT/OT, likely no needs on dc
Pt on RA currently
Discharge Disposition- anticipate home no needs
[2025-08-14] MEDS: TYLENOL 1000 MG PO (16:47)
[2025-08-14 17:38] LABS: Glucose - Point of Care 273 mg/dl (70-99)
[2025-08-14 19:27] VITALS: BP 111/68
[2025-08-14 21:43] LABS: Glucose - Point of Care 248 mg/dl (70-99)
[2025-08-14] MEDS: SENOKOT-S 2 TABLET PO (21:48)
[2025-08-14 22:40] VITALS: BP 120/72
[2025-08-15] VITALS (8 sets, daily range): BP systolic 74–117; BP diastolic 64–75
[2025-08-15] MEDS: TORADOL 15 MG IV (00:40)
[2025-08-15] MEDS: MELATONIN 5 MG PO (00:43)
[2025-08-15] MEDS: TYLENOL 1000 MG PO ×4 (00:48→22:31)
[2025-08-15] MEDS: ROXICODONE 5 MG PO ×4 (03:50→22:31)
[2025-08-15] MEDS: SYNTHROID 75 MCG PO (05:39)
--- NOTE | 2025-08-15 07:46 | PN.DE.MGMTRT ---
Insulin Management
- -
08/15/2025: Diabetes Management Consult Follow up
65 year old male admitted 08/09 with flulike symptoms associated with generalized aches, malaise, nausea, vomiting and dehydration and was diagnosed with influenza. He was noted for euglycemic DKA with a glucose of 184 and anion gap of 24 in the
setting of SGLT2 inhibitor use. PMH: HTN, Hypothyroidism, Dyslipidemia and IDDM.
Pt awake, alert, oriented, out of bed in chair, states he still feels tired mainly due to lack of sleep while in the hospital. Able to diabetes care plan. Pt states he was taking Lantus 20 units BID, Novolog 12 units AC, Jardiance 25mg daily and
Mounjaro 10 mg Q Thursday. He routinely sees Endo Dr. Mckeon and uses a CGM- Dexcom G-6 for glucose monitoring at home. A1C 8.7%, Cr 0.7, eGFR >60
Yesterday AC NovoLog increased to 10 units with low corrective with meals and Lantus 25 units BID.
Glucose range 248 to 286.
Will increase BID lantus to 30 units and AC novolog to 12 units with low corrective insulin.
Will closely monitor glucose trend and adjust insulin dose if necessary.
Will NOT resume SGLT2 at this time. Discussed with patient that when he follows up with Dr. Mckeon she can make the decision if the SGLT2 should be resumed. He is agreeable.
Discussed with Nurse.
Will follow
Diabetes History
- -
Type of Diabetes: 2 requiring insulin
Pre-Admission Diabetes Regimen
08/14/25
08:11
Creatinine 0.7
Lab Results
Hemoglobin A1c 8.7 % (4.0-5.9) H 08/09/25 03:26
Insulin Pump Settings
IP Diabetes Regimen
08/14/25 08/14/25 08/14/25
08:05 08:11 12:45
Glucose 310 H
POC Glucose 267 H 286 H
08/14/25 08/14/25
17:37 21:42
Glucose
POC Glucose 273 H 248 H
Meal type: Lunch
Meal type: Breakfast
Amount consumed: 50%
Amount consumed: 100%
Patient Education
[2025-08-15] MEDS: ELIQUIS 5 MG PO ×2 (08:27→22:35)
[2025-08-15] MEDS: LEXAPRO 20 MG PO (08:27)
[2025-08-15] MEDS: LIPITOR 10 MG PO (08:27)
[2025-08-15] MEDS: VIBRAMYCIN 100 MG PO ×2 (08:27→22:39)
[2025-08-15] MEDS: LIDOCAINE 4% PATCH 1 PATCH TOPICAL (08:28)
[2025-08-15] MEDS: ALTACE 5 MG PO (08:28)
[2025-08-15] MEDS: LOPRESSOR 50 MG PO ×2 (08:28→22:32)
[2025-08-15] MEDS: ROCEPHIN 2000 MG IV (08:29)
[2025-08-15] MEDS: STERILE WATER FOR INJECTION 20 ML IV (08:29)
[2025-08-15] MEDS: LANTUS SC (08:36)
[2025-08-15] MEDS: NOVOLOG FLEXPEN SC (08:36)
[2025-08-15 08:41] LABS: Glucose - Point of Care 223 mg/dl (70-99)
[2025-08-15 08:44] LABS: Hematocrit 40.3 % (39.0-52.0); Hemoglobin 13.8 g/dL (13.0-18.0); Mean Corp Hgb Conc. 34.2 g/dL (33.0-37.0); Mean Corpuscular Volume 80.4 fL (80.0-94.0); Platelet Count 356 10^3/uL (130-400); Red Cell Dist. Width 16.3 % (11.5-14.5)
[2025-08-15] MEDS: NOVOLOG FLEXPEN 12 UNITS SC ×3 (08:49→17:15)
[2025-08-15] MEDS: NOVOLOG FLEXPEN-LOW RESISTANCE 2 UNITS SC ×2 (08:49→17:16)
[2025-08-15 09:17] LABS: ALT (SGPT) 47 U/L (0-50); AST (SGOT) 46 U/L (17-59); Albumin 2.6 g/dl (3.5-5.0); Alkaline Phosphatase 350 U/L (38-126); Blood Urea Nitrogen 13 mg/dl (9-20); Calcium 7.3 mg/dl (8.4-10.2); Carbon Dioxide 25 mmol/L (22-30); Chloride 104 mmol/L (98-107); Estimated Creatinine Clearance > 125 ml/min; Glucose 220 mg/dl (70-99); Potassium 4.0 mmol/L (3.5-5.1); Sodium 133 mmol/L (135-145); Total Protein 6.2 g/dl (6.3-8.2); eGFR > 60.00
[2025-08-15 09:19] LABS: LDH 296 U/L (120-246); Total Protein 6.1 g/dl (6.3-8.2)
--- NOTE | 2025-08-15 09:22 | W.PN.PUL3 ---
Today's Communication / Plan
-
Continue antibiotics
Incentive spirometry
Follow up left-sided pleural fluid studies from thoracentesis today
Repeat CXR tomorrow to assess for pleural fluid reaccumulation
Monitor for fevers and trend WBC
If patient feeling well tomorrow and CXR is stable then he should be ready for discharge with outpatient pulmonary office follow-up
Pulmonary will follow
Assessment
-
Mr. Duran is a 65-year-old male with a history of insulin-dependent diabetes, hypothyroid, hypertension, hyperlipidemia, anxiety, GERD, long COVID who presented with generalized aches and malaise for 2-3 days. He reports having fevers and chills as
well as cough and pleuritic chest pain with decreasing appetite increasing nausea and episode of vomiting. Labs suggestive of euglycemic DKA and influenza A.
DKA recurred-back on insulin drip 08/11/2025.
Also developed rapid atrial fibrillation.
Went back to ICU level of care, and now on floor for continued management.
Pulmonary following for hypoxemia and pneumonia.08/13/2025
Left lower lobe pneumonia-likely bacterial/influenza A on admission as well.

Influenza A: Completed 5 days of Tamiflu-also left lower lobe pneumonia likely bacterial.
Elevated procalcitonin.
CT chest 08/10/2025: No pulmonary embolism. Small left pleural effusion. Large left lower lobe infiltrate likely bacterial pneumonia.
Ceftriaxone/doxycycline started 08/10/2025-seems to be responding. Leukocytosis stable. Afebrile.
Continue to trend WBC and monitor temperature curve
Negative Legionella and strep pneumo antibody
Sputum culture-poor sample.
Chest x-ray 08/13/2025: Improvement on loculated left pleural effusion.
Left-sided ultrasound performed today showing a moderate loculated left-sided pleural effusion and trace right-sided effusion
- Given the loculated appearance, thoracentesis performed today of left-sided pleural effusion - -> follow up cell count with differential, pleural fluid pH, LDH, protein, glucose, culture + cytopathology (all pending)
-
Hypoxemia resolved.
On room air 08/13/2025
Encourage incentive spirometer
Increase activity as tolerated
PT/OT
-
Left-sided pleuritic type chest pain. Due to pneumonia-pleuritic type chest pain/pleurisy.
No DVT or pulmonary embolism.
Possibly related to infection
Improved. Continue analgesia as needed.
Lower extremity Dopplers negative
-
Euglycemic DKA--likely in the setting of influenza A/Roblesunshawnro and Jardiance.
History of type 2 diabetes on insulin
home insulin Lantus 20 units subcu twice a day
Insulin drip discontinued 08/12/2025
Continue basal-bolus SQ insulin with goal BG >100 and <180mg/dL
Defer management to primary team.
-
Electrolytes are balanced
Keep K>4, Mg>2
Denies nausea or vomiting-tolerating diet.
Normal renal function
Eventual diabetes nurse practitioner consultation
Hold Mounjaro and Jardiance for now
-
Rapid atrial fibrillation: Cardiology has been consulted-correspondence reviewed.
Cardizem drip has been discontinued
Continue kbwa-scwzlns-msoecun as able.
Echocardiogram 08/11/2025: LVEF 50%. Normal right ventricular size and function. No significant valvular abnormality.
Troponins were negative
Anticoagulation-per cardiology
--
Physical therapy/Occupational Therapy as tolerated
-
Antiemetics: Zofran
GI PPx: Protonix 40 mg daily
DVT PPx: Eliquis
-
Pulmonary will continue to follow for pneumonia and parapneumonic effusion; discharge planning per primary team (believe he will be ready for discharge in the next 24 hours)
Subjective Data
-
Date of Service:
Date of Service: August 15, 2025
Chief Complaint: Pulmonary Follow Up (Pneumonia/influenza)
Subjective:
Patient seen today at bedside. Currently on room air breathing comfortably. Underwent thoracentesis of his left-sided pleural effusion today. He developed chest pain during thoracentesis. Patient's , Anny, present at bedside and all
questions were answered.
Review of Systems
General: Other (Negative unless mentioned above)
Objective Data
Data Reviewed
Vital Signs / I&O / Oxygen:
Vital Signs
Temp Pulse Resp BP Pulse Ox
98.0 F 77 18 103/72 93
08/15/25 07:53 08/15/25 08:28 08/15/25 07:53 08/15/25 08:28 08/15/25 07:53
Intake and Output
08/14/25 08/15/25 08/16/25
06:59 06:59 06:59
Intake Total 1200 / 1200 480 / 480
Balance 1200 / 1200 480 / 480
SaO2 93
Nasal Cannula flow liters per 5
minute
Physical Exam
General: Respiratory Distress (n) and Comfortable
HEENT: Normocephalic and Anicteric
Cardiovascular: S1-S2 and Peripheral Edema (n)
Respiratory: Wheeze (n), Crackles (right base), Rhonchi (n), Non-Labored Respirations, Stridor (n) and Other (Decreased breath sounds left base)
GI: Soft, Non Distended, Non Tender and Normal Bowel Sounds
Neurology: Awake, Alert and Tremors (n)
Skin: Warm, Cyanosis (n) and Jaundice (n)
Labs/Micro/Reports
Lab Data
08/15/25 08:14
08/15/25 08:14
[2025-08-15] MEDS: LANTUS 0.3 UNITS SC ×2 (09:59→22:38)
--- NOTE | 2025-08-15 11:06 | CM ---
CM reviewed pt with attending- ADC>48 hours
Pt planned for thoracentesis, he remains on RA and independent in room
Per PT eval, likely home no needs
Now on standard precautions
Discharge Disposition- home, likely no needs
--- NOTE | 2025-08-15 11:34 | PTOTSP ---
Chart reviewed, spoke with the patient. The patient was ambulating independently in the hallway, noting he has been walking more since being off Droplet precautions. Patient offered no concerns regarding his mobility or stairs and anticipates
discharge home when ready. No PT needs at this time, will sign off. Encouraged the patient to continue ambulating regularly to build his endurance.
[2025-08-15 12:38] LABS: Glucose - Point of Care 337 mg/dl (70-99)
--- NOTE | 2025-08-15 12:39 | W.PN.HOSP.TC ---
Today's Communication/Plan
-
Thoracentesis today
Cont abx
FR
Assessment / Plan
Assessment / Plan
Physical Exam
General: Comfortable and Conversant
HEENT: Normocephalic and Anicteric
Respiratory: limited with some rales
Cardiac: S1/S2 and Regular Rhythm
GI: Soft, Non Tender and Non Distended
Musculoskeletal: No Clubbing, No Cyanosis
Skin: Warm and Dry
Neuro: Awake, Alert, Oriented and Nonfocal/grossly intact
Psych, calm
Impression:
65year-old with past medical history significant for insulin-dependent diabetes who presents to the emergency department with flulike symptoms. Diagnosed with influenza. Patient has had approximately 2 days of symptoms. He is now having nausea
and vomiting and is dehydrated. Clinical picture shows acidemia, no lactic acidosis, anion gap of 24 with a glucose of 184. Patient likely has known hypoglycemic DKA in the setting of SGLT2 inhibitor use.
Influenza bronchitis
Acute hypoxic respiratory failure, was mid flow, now weaning down to RA
Euglycemic DKA in the settings of SGLT2 inhibitor
Atypical chest pain
Other conditions
IDDM type II
Dyslipidemia
Hypertension
Hypothyroidism
Obesity with BMI of 31
Plan
# New onset A fib
No palpitation. No prior history
s/p IV Cardizem drip
[id number] around 3. Started on Eliquis
Started on oral BB , increased dose to better control HR
Echo 08/11 showed LVEF 50% , mild reduction than prior echo in 2022, No significant valvular heart disease.
F/u Cards outpt
#CAP with Influenza A. Report symptoms for 2 days prior to presentation.
#Sepsis with source and endorgan damage with hypoxia
#Likely parapneumonic effusion
#Hypoxia, resolved, no on RA
WBC continues to trend down
Improvement in pleuritic chest pain
started on IV Abx
Procalcitonin was elevated
Finish course of Tamiflu.
Mucolytic's
Left Chest US to assess for diagnostic +/- therapeutic thora; IR consulted
Pulm on board
# Euglycemic DKA
metabolic acidosis
poorly controlled DM< HGB A1C 8.7
He continues to have metabolic acidosis, will adjust insulin for tight control. Add Pre-meal insulin, c/w Lantus BID, c/w iSS
S/P Insulin gtt for two trials.
Increase twice daily Lantus to 30 units, and AC NovoLog to 12 units with low corrective insulin
Will not resume SGLT2 inhibitor; follows up with Dr. Mckeon she can make the decision if the SGLT2 should be resumed.
-DM CORN SHUCKER consulted
# Essential Hypertension
Started on BB
Resume Ramipril
Hyponatremia
No confusion
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
Continue to monitor
Free water restriction
# Hyperkalemia
resolved
Hyperlipidemia
- Continue atorvastatin
Anxiety/Depression
- Continue Lexapro
Hypothyroidism
- Continue Synthroid
DVT ppx: Eliquis
Total time spent on today's encounter was 53 minutes which included time spent in counseling the patient/family regarding diagnosis and treatment plan as listed above, goals of care, and symptom management. Case was discussed with nursing staff,
specialists, and care coordinators/case management. All labs and imaging personally reviewed by me. Remainder the time spent in detailed review of previous records, lab data, imaging, and other medical provider documentation.
Anticipated Discharge: > 48 hours
Subjective/Interval History
-
Date of Service: August 15, 2025
No acute events overnight
Objective Data
-
Labs:
Laboratory Results
08/15/25
08:14
WBC 19.0 H
Hgb 13.8
Hct 40.3
Plt Count 356
Sodium 133 L
Potassium 4.0
Chloride 104
Carbon Dioxide 25
BUN 13
Creatinine 0.7
Glucose 220 H
Calcium 7.3 L
Total Bilirubin 0.5
AST 46
ALT 47
Alkaline Phosphatase 350 H
Vital Signs:
Vital Signs
Temp Pulse Resp BP Pulse Ox
98.1 F 79 20 117/71 93
08/15/25 11:05 08/15/25 11:05 08/15/25 11:05 08/15/25 11:05 08/15/25 11:05
I&O
08/14/25 08/15/25 08/16/25
06:59 06:59 06:59
Intake Total 1200 / 1200 480 / 480
Balance 1200 / 1200 480 / 480
Review of Systems
-
History Source: Patient
All other systems: Not reviewed unless documented
Physical Exam
-
General: Well Developed and No Apparent Distress
HEENT: Normocephalic, Atraumatic and Moist Mucous Membranes
Respiratory: Clear to Auscultation
Cardiac: Regular Rhythm and S1/S2; Negative Murmur, Rub or Gallop
GI: Soft, Nontender, Nondistended and Normal Bowel Sounds; Negative Organomegaly
Rectal: Deferred by Provider
Musculoskeletal: No Clubbing, No Cyanosis and No Edema
Skin: Negative Rash
Neuro: Nonfocal/Grossly Intact
Data Reviewed
-
Diagnostic Radiology: Report Reviewed by me
CT Scan: Report Reviewed by me
Ultrasound: Report Reviewed by me
Labs: Labs Reviewed by me
[2025-08-15] MEDS: NOVOLOG FLEXPEN-LOW RESISTANCE 4 UNITS SC (12:46)
[2025-08-15 15:35] LABS: Absolute Neutrophils -Man Diff 13.3 10^3/uL (1.4-6.5); Normal RBC Morphology Yes; Platelets Checked Yes; Total Cells Counted 100
[2025-08-15 15:51] LABS: Body Fluid Second Tech DW
[2025-08-15 17:00] LABS: Glucose - Point of Care 240 mg/dl (70-99)
[2025-08-15 21:42] LABS: Glucose - Point of Care 258 mg/dl (70-99)
[2025-08-15] MEDS: SENOKOT-S 2 TABLET PO (22:42)
[2025-08-16] MEDS: ROXICODONE 5 MG PO ×2 (02:52→08:55)
[2025-08-16] MEDS: TYLENOL 1000 MG PO ×2 (04:39→10:39)
[2025-08-16] MEDS: SYNTHROID 75 MCG PO (04:46)
[2025-08-16 07:49] VITALS: BP 117/66
[2025-08-16 07:53] LABS: Glucose - Point of Care 203 mg/dl (70-99)
[2025-08-16] MEDS: LIDOCAINE 4% PATCH 1 PATCH TOPICAL (08:32)
[2025-08-16] MEDS: ALTACE 5 MG PO (08:32)
[2025-08-16] MEDS: VIBRAMYCIN 100 MG PO (08:32)
[2025-08-16] MEDS: NOVOLOG FLEXPEN 16 UNITS SC ×2 (08:33→13:12)
[2025-08-16] MEDS: LEXAPRO 20 MG PO (08:33)
[2025-08-16] MEDS: LOPRESSOR 50 MG PO (08:33)
[2025-08-16] MEDS: LIPITOR 10 MG PO (08:33)
[2025-08-16] MEDS: ELIQUIS 5 MG PO (08:33)
[2025-08-16] MEDS: STERILE WATER FOR INJECTION 20 ML IV (08:34)
[2025-08-16] MEDS: ROCEPHIN 2000 MG IV (08:34)
[2025-08-16] MEDS: NOVOLOG FLEXPEN-LOW RESISTANCE 2 UNITS SC (08:34)
[2025-08-16] MEDS: LANTUS 0.34 UNITS SC (08:43)
[2025-08-16] MEDS: LANTUS SC (09:38)
--- NOTE | 2025-08-16 10:13 | W.PN.PUL3 ---
Today's Communication / Plan
-
Continue antibiotics for total of 10 days
Incentive spirometry
Follow up left-sided pleural fluid cultures and cytopathology from thoracentesis on 08/15
Serial imaging as an outpatient
Monitor for fevers and trend WBC
Patient is stable for discharge home. Outpatient pulmonary office follow-up with me will be arranged. No additional recommendations at this time. Pulmonary service will now sign off. Please reconsult if there are any additional
questions/concerns, or if patient's respiratory status deteriorates.
Assessment
-
Mr. Duran is a 65-year-old male with a history of insulin-dependent diabetes, hypothyroid, hypertension, hyperlipidemia, anxiety, GERD, long COVID who presented with generalized aches and malaise for 2-3 days. He reports having fevers and chills as
well as cough and pleuritic chest pain with decreasing appetite increasing nausea and episode of vomiting. Labs suggestive of euglycemic DKA and influenza A.
DKA recurred-back on insulin drip 08/11/2025.
Also developed rapid atrial fibrillation.
Went back to ICU level of care, and now on floor for continued management.
Pulmonary following for hypoxemia and pneumonia.08/13/2025
Left lower lobe pneumonia-likely bacterial/influenza A on admission as well.

Influenza A with left lower lobe bacterial superinfection + parapneumonic effusion: Completed 5 days of Tamiflu-also left lower lobe pneumonia likely bacterial.
Elevated procalcitonin.
CT chest 08/10/2025: No pulmonary embolism. Small left pleural effusion. Large left lower lobe infiltrate likely bacterial pneumonia.
Ceftriaxone/doxycycline started 08/10/2025-he is responding favorably - Leukocytosis stable. Afebrile.
Continue to trend WBC and monitor temperature curve
Negative Legionella and strep pneumo antibody
Sputum culture-poor sample.
Chest x-ray 08/13/2025: Improvement on loculated left pleural effusion.
Left-sided ultrasound performed today showing a moderate loculated left-sided pleural effusion and trace right-sided effusion
- Given the loculated appearance, thoracentesis performed on 08/15 of left-sided pleural effusion - -> removed to 50 cc of hazy yellow exudative fluid. Pleural fluid glucose is 196, although pH 7.01. Believe that this is a complicated
parapneumonic effusion, although not an empyema. No drainage necessary. Continue with antibiotics to treat pneumonia, which I would give for at least 10 days total. Outpatient follow-up to repeat imaging and go over his symptoms, if any.
Follow-up cultures in the coming weeks (so far bacterial, fungus and AFB all show NGTD) and follow-up cytopathology.
-
Hypoxemia resolved.
On room air 08/13/2025
Encourage incentive spirometer
Increase activity as tolerated
PT/OT
-
Left-sided pleuritic type chest pain. Due to pneumonia-pleuritic type chest pain/pleurisy.
No DVT or pulmonary embolism.
Possibly related to infection
Improved. Continue analgesia as needed.
Lower extremity Dopplers negative
-
Euglycemic DKA--likely in the setting of influenza A/Mounjaro and Jardiance.
History of type 2 diabetes on insulin
home insulin Lantus 20 units subcu twice a day
Insulin drip discontinued 08/12/2025
Continue basal-bolus SQ insulin with goal BG >100 and <180mg/dL
Defer management to primary team.
-
Keep K>4, Mg>2
Goal BG >100 and <180
-
Rapid atrial fibrillation: Cardiology has been consulted-correspondence reviewed.
Cardizem drip has been discontinued
Continue metoprolol tartrate 50 mg PO BID
Echocardiogram 08/11/2025: LVEF 50%. Normal right ventricular size and function. No significant valvular abnormality.
Troponins were negative
Anticoagulation-per cardiology -on Eliquis
--
Physical therapy/Occupational Therapy as tolerated
-
Antiemetics: Zofran
GI PPx: Protonix 40 mg daily
DVT PPx: Eliquis
-
Patient is stable for discharge home. Outpatient pulmonary office follow-up with me will be arranged. No additional recommendations at this time. Pulmonary service will now sign off. Thank you for allowing us to be involved in the care of this
patient. Please reconsult if there are any additional questions/concerns, or if patient's respiratory status deteriorates.
Total time spent today was 39 minutes for this encounter. Time includes reviewing laboratory test/imaging results, reviewing pertinent medical records, obtaining and reviewing medical history, performing an appropriate exam, ordering medications,
tests and procedures. Time also includes documentation of this encounter, coordinating patient care and communicating with other healthcare professionals. Total time does not include separately billed tests performed on this date of service.
Subjective Data
-
Date of Service:
Date of Service: August 16, 2025
Chief Complaint: Pulmonary Follow Up (Pneumonia/influenza)
Subjective:
Seen today at bedside. Afebrile overnight. Pleural fluid cultures so far have not grown any bugs. He is eager to go home. Denies chest pain, KENT, nausea, fevers or chills.
Review of Systems
General: Other (Negative unless mentioned above)
Objective Data
Data Reviewed
Vital Signs / I&O / Oxygen:
Vital Signs
Temp Pulse Resp BP Pulse Ox
98.1 F 85 16 117/66 94
08/16/25 07:49 08/16/25 08:33 08/16/25 07:49 08/16/25 08:33 08/16/25 07:49
Intake and Output
08/15/25 08/16/25 08/17/25
06:59 06:59 06:59
Intake Total 480 / 480 240 / 240
Balance 480 / 480 240 / 240
SaO2 94
Nasal Cannula flow liters per 5
minute
Physical Exam
General: Respiratory Distress (n) and Comfortable
HEENT: Normocephalic and Anicteric
Cardiovascular: S1-S2 and Peripheral Edema (n)
Respiratory: Wheeze (n), Crackles (Left middle lung field), Rhonchi (n), Non-Labored Respirations, Stridor (n) and Other (Decreased breath sounds left base)
GI: Soft, Non Distended, Non Tender and Normal Bowel Sounds
Neurology: Awake, Alert and Tremors (n)
Skin: Warm, Cyanosis (n) and Jaundice (n)
Labs/Micro/Reports
Lab Data
08/15/25 08:14
Microbiology
08/15/25 13:33 Pleural Fluid Body Fluid Culture - Preliminary
No Growth After 18-24 Hours
08/15/25 13:33 Pleural Fluid Gram Stain - Preliminary
[2025-08-16 10:20] LABS: ALT (SGPT) 41 U/L (0-50); AST (SGOT) 35 U/L (17-59); Albumin 2.7 g/dl (3.5-5.0); Alkaline Phosphatase 345 U/L (38-126); Blood Urea Nitrogen 10 mg/dl (9-20); Calcium 7.3 mg/dl (8.4-10.2); Carbon Dioxide 22 mmol/L (22-30); Chloride 103 mmol/L (98-107); Estimated Creatinine Clearance > 125 ml/min; Glucose 283 mg/dl (70-99); Potassium 3.9 mmol/L (3.5-5.1); Sodium 132 mmol/L (135-145); Total Protein 6.5 g/dl (6.3-8.2); eGFR > 60.00
--- NOTE | 2025-08-16 12:06 | W.PN.HOSP.TC ---
Addendum entered and electronically signed by Get Lagunas MD 08/18/25 17:01:
[id number]
Original Note:
Today's Communication/Plan
-
BB
ACEI
Abx course
DM regimen
Eliquis
F/u PCP, Cards, Pulm outpt
Repeat chest imaging as per pulm outpatient
Assessment / Plan
Assessment / Plan
Physical Exam
General: Comfortable and Conversant
HEENT: Normocephalic and Anicteric
Respiratory: limited with some rales
Cardiac: S1/S2 and Regular Rhythm
GI: Soft, Non Tender and Non Distended
Musculoskeletal: No Clubbing, No Cyanosis
Skin: Warm and Dry
Neuro: Awake, Alert, Oriented and Nonfocal/grossly intact
Psych, calm
Impression:
65year-old with past medical history significant for insulin-dependent diabetes who presents to the emergency department with flulike symptoms. Diagnosed with influenza. Patient has had approximately 2 days of symptoms. He is now having nausea
and vomiting and is dehydrated. Clinical picture shows acidemia, no lactic acidosis, anion gap of 24 with a glucose of 184. Patient likely has known hypoglycemic DKA in the setting of SGLT2 inhibitor use.
Influenza bronchitis
Acute hypoxic respiratory failure, was mid flow, now weaning down to RA
Euglycemic DKA in the settings of SGLT2 inhibitor
Atypical chest pain
Other conditions
IDDM type II
Dyslipidemia
Hypertension
Hypothyroidism
Obesity with BMI of 31
Plan
# New onset A fib
No palpitation. No prior history
s/p IV Cardizem drip
[id number] around 3. Started on Eliquis
Started on oral BB
Echo 08/11 showed LVEF 50% , mild reduction than prior echo in 2022, No significant valvular heart disease.
F/u Cards outpt
#CAP with Influenza A. Report symptoms for 2 days prior to presentation.
#Sepsis with source and end organ damage with hypoxia
#parapneumonic effusion
#Hypoxia, resolved, no on RA
WBC continues to trend down
Improvement in pleuritic chest pain
started on IV Abx�transition over to antibiotics, total 10-day course
Procalcitonin was elevated
Finish course of Tamiflu.
Mucolytic's
Left Chest US : therapeutic thora; indicative of parapneumonic effusion
Pulm on board�follow-up closely with further imaging as required outpatient
Monitor CBC within 5 to 7 days, educated on calling pulmonary office or come back to the ED if white count is rising
# Euglycemic DKA
metabolic acidosis
poorly controlled DM< HGB A1C 8.7
He continues to have metabolic acidosis, will adjust insulin for tight control. Add Pre-meal insulin, c/w Lantus BID, c/w iSS
S/P Insulin gtt for two trials.
Increase twice daily Lantus to 34 units, and AC NovoLog to 16 units with low corrective insulin
Will not resume SGLT2 inhibitor; follows up with Dr. Mckeon she can make the decision if the SGLT2 should be resumed.
-DM INHALATION THERAPY AIDE consulted
# Essential Hypertension
Started on BB
Resume Ramipril
Hyponatremia
No confusion
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
Continue to monitor
Free water restriction
F/u outpatient
# Hyperkalemia
resolved
Hyperlipidemia
- Continue atorvastatin
Anxiety/Depression
- Continue Lexapro
Hypothyroidism
- Continue Synthroid
DVT ppx: Eliquis
More than 30 minutes spent in discharge including
Final examination of the patient
Summarizing hospital stay
Instructions for continuing care to all relevant caregivers
Preparation of discharge records, prescriptions, and referral forms
Total time spent (in minutes): 36
Anticipated Discharge: Today
Subjective/Interval History
-
Date of Service: August 16, 2025
No acute event overnight
Objective Data
-
Labs:
Laboratory Results
08/16/25
09:05
Sodium 132 L
Potassium 3.9
Chloride 103
Carbon Dioxide 22
BUN 10
Creatinine 0.6 L
Glucose 283 H
Calcium 7.3 L
Total Bilirubin 0.4
AST 35
ALT 41
Alkaline Phosphatase 345 H
Vital Signs:
Vital Signs
Temp Pulse Resp BP Pulse Ox
98.1 F 85 16 117/66 94
08/16/25 07:49 08/16/25 08:33 08/16/25 07:49 08/16/25 08:33 08/16/25 08:15
I&O
08/15/25 08/16/25 08/17/25
06:59 06:59 06:59
Intake Total 480 / 480 240 / 240
Balance 480 / 480 240 / 240
Review of Systems
-
History Source: Patient
All other systems: Not reviewed unless documented
Physical Exam
-
General: Well Developed and No Apparent Distress
HEENT: Normocephalic, Atraumatic and Moist Mucous Membranes
Respiratory: Clear to Auscultation
Cardiac: Regular Rhythm and S1/S2; Negative Murmur, Rub or Gallop
GI: Soft, Nontender, Nondistended and Normal Bowel Sounds; Negative Organomegaly
Rectal: Deferred by Provider
Musculoskeletal: No Clubbing, No Cyanosis and No Edema
Skin: Negative Rash
Neuro: Nonfocal/Grossly Intact
Data Reviewed
-
Diagnostic Radiology: Report Reviewed by me
CT Scan: Report Reviewed by me
Ultrasound: Report Reviewed by me
Labs: Labs Reviewed by me
[2025-08-16] MEDS: MOTRIN 600 MG PO (12:14)
[2025-08-16 12:34] LABS: Glucose - Point of Care 255 mg/dl (70-99)
--- NOTE | 2025-08-16 12:38 | PN.DE.MGMTRT ---
Insulin Management
- -
08/16/2025: Diabetes Management Consult Follow up
65 year old male admitted 08/09 with flulike symptoms associated with generalized aches, malaise, nausea, vomiting and dehydration and was diagnosed with influenza. He was noted for euglycemic DKA with a glucose of 184 and anion gap of 24 in the
setting of SGLT2 inhibitor use. PMH: HTN, Hypothyroidism, Dyslipidemia and IDDM.
Pt awake, alert, oriented, out of bed in chair, states he is ready for discharge! at bedside and very supportive. Able to diabetes care plan. Pt states he was taking Lantus 20 units BID, Novolog 12 units AC, Jardiance 25mg daily and Mounjaro
10 mg Q Thursday. He routinely sees Endo Dr. Mckeon and uses a CGM- Dexcom G-6 for glucose monitoring at home. A1C 8.7%, Cr 0.7, eGFR >60
08/15 AC NovoLog increased to 12 units with low corrective with meals and Lantus 30 units BID. Glucose range 220 to 337.
08/16 Will increase BID lantus to 35 units and AC novolog to 16 units with low corrective insulin.
Will closely monitor glucose trend and adjust insulin dose if necessary.
Will NOT resume SGLT2 at this time. Discussed with patient that when he follows up with Dr. Mckeon she can make the decision if the SGLT2 should be resumed due to euglycemic DKA. He is agreeable.
Discussed with Nurse.
Will follow
Diabetes History
- -
Type of Diabetes: 2 requiring insulin
Pre-Admission Diabetes Regimen
08/16/25
09:05
Creatinine 0.6 L
Lab Results
Hemoglobin A1c 8.7 % (4.0-5.9) H 08/09/25 03:26
Insulin Pump Settings
IP Diabetes Regimen
08/15/25 08/15/25 08/15/25
12:36 16:59 21:39
Glucose
POC Glucose 337 H 240 H 258 H
08/16/25 08/16/25 08/16/25
07:52 09:05 12:33
Glucose 283 H
POC Glucose 203 H 255 H
Patient Education
[2025-08-16] MEDS: NOVOLOG FLEXPEN-LOW RESISTANCE 3 UNITS SC (13:13)
[2025-08-16 15:02] VITALS: BP 91/56
--- NOTE | 2025-08-16 15:19 | CM ---
Patient has been medically cleared for discharge to home with no additional skilled needs. Patient has arranged for transport home.
== END 2025-08-16 15:26 | disposition home or self-care (01) | DRG 871 ==
LOC: 2 NORTH 06:41
PROVIDERS: Internal Medicine; Nurse Practitioner Family; Nurse Practitioner Primary Care; Physician Assistant; Radiology Vascular & Interventional Radiology; Student in an Organized Health Care Education/Training Program; ADMITTING PHYSICIAN Internal Medicine; ATTENDING PHYSICIAN Internal Medicine; CONSULT PHYSICIAN Internal Medicine Critical Care Medicine; EMERGENCY PHYSICIAN Student in an Organized Health Care Education/Training Program; FAMILY PHYSICIAN Internal Medicine; OTHER PHYSICIAN Internal Medicine Cardiovascular Disease
PROC: 0W9B3ZZ Drainage of Left Pleural Cavity, Percutaneous Approach (ICD-10-PCS; 2025-08-15)
DX: A41.9 Sepsis, unspecified organism (principal); E11.10 Type 2 diabetes mellitus with ketoacidosis without coma; E87.1 Hypo-osmolality and hyponatremia; R09.02 Hypoxemia; R65.20 Severe sepsis without septic shock; J10.1 Influenza due to other identified influenza virus with other respiratory manifestations; I10 Essential (primary) hypertension; E87.5 Hyperkalemia; F41.9 Anxiety disorder, unspecified; E03.9 Hypothyroidism, unspecified; E78.00 Pure hypercholesterolemia, unspecified; I48.91 Unspecified atrial fibrillation; U09.9 Post COVID-19 condition, unspecified; Z80.0 Family history of malignant neoplasm of digestive organs; Z82.0 Family history of epilepsy and other diseases of the nervous system; Z82.49 Family history of ischemic heart disease and other diseases of the circulatory system; Z79.4 Long term (current) use of insulin; Z79.84 Long term (current) use of oral hypoglycemic drugs; Z79.890 Hormone replacement therapy; Z79.899 Other long term (current) drug therapy; Z79.85 Long-term (current) use of injectable non-insulin antidiabetic drugs; K21.9 Gastro-esophageal reflux disease without esophagitis; Z11.52 Encounter for screening for COVID-19
CPT/HCPCS: 32555; 71045; 71046; 71275; 76604; 80048; 80053; 82010; 82805; 82945; 82962; 83036; 83605; 83615; 83735; 83930; 83986; 84100; 84145; 84155; 84157; 84484; 85025; 85027; 85379; 85610; 85730; 87015; 87070; 87205; 87449; 87502; 87811; 87899; 88112; 88305; 89051; 93005; 93306; 93970; 96361; 96374; 97116; 97162; 97167; 99291; Q9967